=== PATIENT | female | born 1975 | race Caucasian/White ===

== ENCOUNTER 2019-12-02 14:10 | Outpatient (CLI) | payer BC, SELFPAY ==
--- NOTE | ~2019-12-02 | US_ITS ---
EXAMINATION: US OB follow up DATE: 12/02/2019 14:57 INDICATION: Establish dating of during second trimester . TECHNIQUE: Real-time ultrasound of the pelvis was performed. The interpreting radiologist was not pre sent for the study. COMPARISON: None. FINDINGS: There is a single living fetus in vertex presentation. The placenta is anterior and not low-lying wi th caudal margin 9.3 cm from the internal cervical os. heart rate is 142 beats per minute (bpm) . The amniotic fluid index is subjectively normal. The following biometric data were obtained: BPD: 4.6 cm -> 19 weeks 5 days Head circumference: 16.4 cm -> 19 weeks 1 days Abdominal circumference: 14.2 cm -> 19 weeks 4 days Femur length: 2.8 cm -> 18 weeks 4 days These measurements are concordant. Head circumference to abdominal circumference ratio: 1.15 (normal range 1.09-1.26). Estimated weight: 276 g (+/-) 41 g. or 10 oz. (+/-) 1 oz. IMPRESSION: 1. Single living fetus in vertex presentation with heart rate of 142 bpm. 2. Gestational age by ultrasound of 19 weeks 2 day(s) +/- 1 week 2 days with ultrasound estimated cassandra e of delivery (MATHIEU) of 04/25/2020. Estimated weight is 18th percentile by Hadlock criteria when 04/22/2020 is used as the MATHIEU. Please correlate with clinical information or earlier ultrasounds for m ost accurate MATHIEU. Reviewed, dictated and finalized at location A. IMPRESSION: 1. Single living fetus in vertex presentation with heart rate of 142 bpm. 2. Gestational age by ultrasound of 19 weeks 2 day(s) +/- 1 week 2 days with ul trasound estimated date of delivery (MATHIEU) of 04/25/2020. Estimated weight is 18th percentile by Hadlock criteria when 04/22/2020 is used as the MATHIEU. Pleas e correlate with clinical information or earlier ultrasounds for most accurate MATHIEU.
[2019-12-02 16:23] LABS: Basophils Percent Auto 0.1 % (0.2-1.2); Eosinophils Percent Auto 0.2 % (0-4.4); Hematocrit 35.8 % (37.0-47.0); Hemoglobin 12.5 g/dL (12.0-15.0); Immature Granulocyte Absolute 0.04 K/mm3 (0.00-0.031); Immature Granulocyte Percent A 0.4 % (0-0.5); Lymphocytes Absolute Auto 1.24 K/mm3 (0.9-3.2); Lymphocytes Percent Auto 11.2 % (18.3-44.2); Mean Corpuscular HGB Conc 34.9 g/dl (32-36); Mean Corpuscular Hemoglobin 30.4 pg (26-34); Mean Corpuscular Volume 87.1 fl (80-100); Mean Platelet Volume 8.8 fl (7.4-10.4); Monocytes Absolute Auto 0.4 K/mm3 (0.1-0.6); Monocytes Percent Auto 3.3 % (2.6-8.5); Neutrophils Absolute Auto 9.4 K/mm3 (1.3-6.7); Neutrophils Percent Auto 84.8 % (45.5-73.1); Platelet Count Result 294 k/mm3 (150-375); Red Blood Count 4.11 M/mm3 (4.2-5.4); Red Cell Distribution Width 12.8 % (11.5-14.5); White Blood Count 11.1 K/mm3 (4.5-10.0)
[2019-12-02 16:37] LABS: Alanine Aminotransferase 48 U/L (4-35); Albumin Level 4.1 g/dL (3.5-5.1); Alkaline Phosphatase 95 U/L (38-126); Aspartate Amino Transferase 31 U/L (14-36); Bilirubin,Total 0.4 mg/dL (0.2-1.3); Blood Urea Nitrogen 9 mg/dL (7-17); Calcium 9.7 mg/dL (8.4-10.2); Carbon Dioxide 20 mmol/L (22-30); Chloride 104 mmol/L (98-107); Estimated Glomerular Filt Rate > 60; Glucose 91 mg/dL (65-105); Lactate Dehydrogenase 401 U/L (313-618); Potassium 4.1 mmol/L (3.4-5.0); Sodium 130 mmol/L (137-145)
[2019-12-02 17:02] LABS: Hemoglobin A1C 5.2 % (<5.7)
[2019-12-02 17:04] LABS: Vitamin D 25 Hydroxy 22.5 ng/mL
[2019-12-02 17:27] LABS: Hepatitis B Surface Antigen Negative (Negative); Rubella IgG Antibody 32.1 IU/ML
[2019-12-02 17:31] LABS: HIV 1/2 Ab P24 Ag Result Negative (Negative)
[2019-12-03 08:49] LABS: Rapid Plasma Reagin Non-Reactive (NonReactive)
== END 2019-12-02 14:11 | disposition home or self-care (01) ==
PROVIDERS: PCP Nurse Practitioner; Visit Provider Nurse Practitioner
DX: Z34.92 Encounter for supervision of normal pregnancy, unspecified, second trimester (principal); Z3A.19 19 weeks gestation of pregnancy
CPT/HCPCS: 36415; 76816; 80053; 82306; 83036; 83615; 85025; 85461; 86592; 86703; 86762; 87340; G0432

== ENCOUNTER 2019-12-04 15:48 | Outpatient (CLI) | payer BC, SELFPAY ==
[2019-12-04 18:39] LABS: Creatinine Urine 118.2 mg/dL
[2019-12-04 18:50] LABS: Creatinine 24 Hour Urine 0.9 gm/24 (0.8-1.8); Total Volume 24 Hour Urine 800 ml
[2019-12-04 19:14] LABS: Total Protein Urine 24 Hr 136 MG/DAY (28-141); Total Protein Urine Random 17 mg/dL; Total Volume 24 Hour Urine 800 ml
== END 2019-12-04 15:49 | disposition home or self-care (01) ==
PROVIDERS: PCP Nurse Practitioner; Visit Provider Nurse Practitioner
DX: Z36.9 Encounter for antenatal screening, unspecified (principal)
CPT/HCPCS: 81050; 82570; 84156

== ENCOUNTER 2019-12-16 14:57 | Outpatient (CLI) | payer BC, SELFPAY ==
[2019-12-16 15:50] LABS: Alanine Aminotransferase 39 U/L (4-35); Albumin Level 3.7 g/dL (3.5-5.1); Alkaline Phosphatase 84 U/L (38-126); Aspartate Amino Transferase 28 U/L (14-36); Bilirubin,Total 0.4 mg/dL (0.2-1.3); Blood Urea Nitrogen 9 mg/dL (7-17); Calcium 8.9 mg/dL (8.4-10.2); Carbon Dioxide 23 mmol/L (22-30); Chloride 106 mmol/L (98-107); Estimated Glomerular Filt Rate > 60; Glucose 137 mg/dL (65-105); Potassium 3.5 mmol/L (3.4-5.0); Sodium 135 mmol/L (137-145)
== END 2019-12-16 14:58 | disposition home or self-care (01) ==
PROVIDERS: PCP Nurse Practitioner Family; Visit Provider Obstetrics & Gynecology Gynecology
DX: R79.9 Abnormal finding of blood chemistry, unspecified (principal)
CPT/HCPCS: 36415; 80053

== ENCOUNTER 2020-03-05 15:38 | Outpatient (CLI) | payer BC, SELFPAY ==
--- NOTE | 2020-03-05 18:44 | OBADM ---
This patient, Nasreen Osorio, admitted to the OB room for observation. Patient/family oriented to hospital policies and general routines including ID bracelet, bed and alarms, visiting hours, pain management, procedures, bathroom and other care routines, personal items, smoking policy, room service/diet, call light, and visiting hours. Patient/Family are encouraged to report perceived risks to care and to ask questions if they do not understand what they are told or what they should do.
== END 2020-03-05 15:39 | disposition home or self-care (01) ==
PROVIDERS: PCP Nurse Practitioner Family; Visit Provider Obstetrics & Gynecology
DX: Z34.90 Encounter for supervision of normal pregnancy, unspecified, unspecified trimester (principal); Z3A.00 Weeks of gestation of pregnancy not specified
CPT/HCPCS: J3105

== ENCOUNTER 2020-03-10 19:17 | Observation (INO) | payer BC, SELFPAY ==
[2020-03-10 20:54] VITALS: BP 119/67; PULSE 87
[2020-03-10 21:22] LABS: Add Urine Microscopic? YES; Appearance Urine Clear (Clear); Bacteria Urine Trace /hpf; Bilirubin Urine Negative (Negative); Blood Urine Negative (Negative); Color Urine Yellow (Yellow); Glucose Urine UA Negative (Negative); Ketones Urine 1+ mg/dL (Negative); Leukocyte Esterase Ur Negative LEU/UL (NEGATIVE); Mucus Urine Rare /lpf; Nitrate Urine Negative (Negative); Protein Urine Negative (Negative); RBC Urine 0-2 /hpf (0-2); Squamous Epithelial Cell Urine Moderate /hpf (Few); Urobilinogen Urine Negative mg/dL (<2.0); WBC Urine 0-3 /hpf (0-3)
[2020-03-10 21:41] LABS: Fetal Fibronectin Negative
[2020-03-10] MEDS: TERBUTALINE SULFATE 1 MG/ML VIAL 0.25 MG SUB-Q (22:17)
[2020-03-10 22:39] VITALS: BP 139/47; PULSE 93
[2020-03-10 23:08] VITALS: BP 132/53; PULSE 90
[2020-03-10] MEDS: NIFEdipine 10 MG CAPSULE PO (23:54)
[2020-03-11 01:43] VITALS: BMI 35.9
--- NOTE | 2020-03-11 01:43 | OBADM ---
[id number]. This patient, Nasreen Osorio, admitted to the OB room OB Post 116 for observation. Patient/family oriented to hospital policies and general routines including ID bracelet, bed and alarms, visiting hours, pain management, procedures, bathroom and other care routines, personal items, smoking policy, room service/diet, and visiting hours. Patient/Family are encouraged to report perceived risks to care and to ask questions if they do not understand what they are told or what they should do.
--- NOTE | 2020-03-20 11:18 | PM.OBTRLD ---
OB - Triage/Final Diagnosis Evaluation Laboratory results: Laboratory Tests 03/10/20 03/10/20 21:10 21:10 Urine Color Yellow Urine Appearance Clear Urine pH 6.0 Ur Specific [place] 1.010 Urine Protein Negative Urine Glucose (UA) Negative Urine Ketones 1+ H Ur Blood (Man) Negative Urine Nitrate Negative Urine Bilirubin Negative Urine Urobilinogen Negative Ur Leukocyte Esterase Negative Urine RBC 0-2 Urine WBC 0-3 Ur Squamous Epith Cells Moderate H Urine Bacteria Trace Hyaline Casts 1-2 Urine Mucus Rare Fibronectin Negative Final Diagnosis (1) contractions: Code(s): O47.9 - False labor, unspecified Status: Acute
== END 2020-03-11 00:10 | disposition home or self-care (01) ==
PROVIDERS: Admitting Provider Obstetrics & Gynecology; PCP Nurse Practitioner Family; Visit Provider Obstetrics & Gynecology
DX: O47.9 False labor, unspecified (principal); Z3A.00 Weeks of gestation of pregnancy not specified
CPT/HCPCS: 81001; 82731; 96372; A9270; G0378; G0379; J3105

== ENCOUNTER 2020-04-22 14:55 | Observation (INO) | payer BC, SELFPAY ==
[2020-04-22] VITALS (62 sets, daily range): BP systolic 122–183; BP diastolic 61–85; PULSE 43–73; RESP 15–16; TEMP 36.4–36.6; O2SAT 93–100
[2020-04-22 10:41] LABS: Basophils Percent Auto 0.3 % (0.2-1.2); Eosinophils Absolute Auto 0.2 K/mm3 (0-0.3); Eosinophils Percent Auto 2.5 % (0-4.4); Hematocrit 31.3 % (37.0-47.0); Hemoglobin 10.8 g/dL (12.0-15.0); Immature Granulocyte Absolute 0.06 K/mm3 (0.00-0.031); Immature Granulocyte Percent A 0.9 % (0-0.5); Lymphocytes Absolute Auto 1.14 K/mm3 (0.9-3.2); Lymphocytes Percent Auto 17.9 % (18.3-44.2); Mean Corpuscular HGB Conc 34.5 g/dl (32-36); Mean Corpuscular Hemoglobin 30.9 pg (26-34); Mean Corpuscular Volume 89.7 fl (80-100); Mean Platelet Volume 8.6 fl (7.4-10.4); Monocytes Absolute Auto 0.3 K/mm3 (0.1-0.6); Neutrophils Absolute Auto 4.7 K/mm3 (1.3-6.7); Neutrophils Percent Auto 73.4 % (45.5-73.1); Platelet Count Result 269 k/mm3 (150-375); Red Blood Count 3.49 M/mm3 (4.2-5.4); Red Cell Distribution Width 12.1 % (11.5-14.5); White Blood Count 6.4 K/mm3 (4.5-10.0)
[2020-04-22] MEDS: LABETALOL HCL 100 MG TABLET PO ×2 (10:44→11:23)
[2020-04-22] MEDS: MEPERIDINE HCL INJ (*CRX) 50 MG/ML AMPUL IM ×2 (10:47→22:10)
[2020-04-22 10:54] LABS: Alanine Aminotransferase 47 U/L (4-35); Albumin Level 3.4 g/dL (3.5-5.1); Alkaline Phosphatase 130 U/L (38-126); Anion Gap 10 mmol/L (8-16); Aspartate Amino Transferase 31 U/L (14-36); Bilirubin,Total 0.3 mg/dL (0.2-1.3); Blood Urea Nitrogen 20 mg/dL (7-17); Calcium 8.6 mg/dL (8.4-10.2); Carbon Dioxide 23 mmol/L (22-30); Chloride 108 mmol/L (98-107); Estimated Glomerular Filt Rate > 60; Glucose 95 mg/dL (65-105); Potassium 4.1 mmol/L (3.4-5.0); Sodium 141 mmol/L (137-145); Uric Acid 5.1 mg/dL (2.5-7.5)
--- NOTE | 2020-04-22 11:09 | PC.NURSE ---
9295--Phone call to Dr. Restrepo re: Elevated BP, orders to give another dose of labetalol 100mg PO now and reevaluate in 20 minutes.
--- NOTE | 2020-04-22 11:50 | PC.NURSE ---
2411--Page to Dr. Restrepo to report v.s.
--- NOTE | 2020-04-22 12:01 | PC.NURSE ---
1200--Dr. Restrepo on unit, v.s. reviewed, no new orders received.
--- NOTE | 2020-04-22 12:41 | PC.NURSE ---
3182--Phone call to Dr. Restrepo re: kezia and h/a 08/25 bilateral temporal. Orders for procardia and vicoden.
[2020-04-22] MEDS: HYDROcodone/acetaminophen (*CRX) 10-325 MG TABLET 1 TAB PO (13:04)
[2020-04-22] MEDS: NIFEdipine 30 MG TAB.ER.24 PO (13:05)
[2020-04-22] MEDS: FUROSEMIDE INJ 40 MG/4 ML VIAL IV PUSH (15:09)
--- NOTE | 2020-04-22 16:28 | PC.NURSE ---
6464--Phone call to Dr. Restrepo re: kezia, orders for hydralazine IV per protocol.
[2020-04-22] MEDS: hydrALAZINE HCL 20 MG/ML VIAL 5 MG IV PUSH (16:51)
[2020-04-22] MEDS: IBUPROFEN 400 MG TABLET 800 MG PO (18:44)
[2020-04-23] VITALS (122 sets, daily range): BP systolic 139–154; BP diastolic 66–86; PULSE 50–77; TEMP 36.4–37.1; O2SAT 94–100
--- NOTE | 2020-04-23 07:48 | PM.IMHP ---
H&P: HPI History of Present Illness Date/Time: 04/23/20 07:48 Chief complaint: elevated bp Narrative: Nasreen Osorio is a 44 year old female 6 days pp seen at the office. BP's elevated and headache with scotomata. Sent to [facility] yesterday for management. Given Labetalol, procardia, lasix, and hydralazine to control BP. Good diuresis. BP's stable for >12 hours without meds. Patient headache treated with Demerol, ibuprofen, and norco. No further scotamata. [facility] Past Medical History Medical History (Updated 04/23/20 @ 13:57 by Nasreen Restrepo MD) Migraines (normal spontaneous vaginal delivery) x 2 contractions Status post hysteroscopy Family History Family History (Updated 07/27/16 @ 11:28 by DOCTOR UNKNOWN) Father Diabetes mellitus Family history of renal failure Mother Diabetes mellitus Family history of migraine headaches Family history of Parkinson's disease Family history of Alzheimer's disease Family history of malignant neoplasm of cervix Other Family history of lung cancer Family history of malignant neoplasm of brain Social History Social History Smoking status: Never smoker Alcohol intake: current Meds Home Medications and Allergies Home Medications Medication Instructions Recorded Confirmed Type acetaminophen [Tylenol] 650 mg PO Q6H PRN 04/22/20 04/22/20 History docusate sodium [Colace] 100 mg PO DAILY PRN 04/22/20 04/22/20 History ibuprofen 600 mg PO Q6H PRN 04/22/20 04/22/20 History hydrocodone-acetaminophen [[place]] 1 tablet PO Q4H PRN #10 tablet 04/23/20 Rx Allergies Allergy/AdvReac Type Severity Reaction Status Date / Time No Known Allergies Allergy Unverified 07/21/16 10:30 Vital Signs Vital Signs - 24 hr 04/22/20 10:38 04/22/20 10:43 04/22/20 10:44 Temperature Pulse Rate 52 L 54 L 54 L Respiratory Rate Blood Pressure 171/75 H 183/85 H Pulse Oximetry 04/22/20 10:56 04/22/20 11:01 04/22/20 11:16 Temperature Pulse Rate 52 L 55 L 48 L Respiratory Rate Blood Pressure 181/83 H 174/85 H 168/70 H Pulse Oximetry 04/22/20 11:21 04/22/20 11:23 04/22/20 11:31 Temperature Pulse Rate 49 L 57 L 49 L Respiratory Rate Blood Pressure 168/76 H 162/75 H Pulse Oximetry 04/22/20 11:41 04/22/20 11:46 04/22/20 12:01 Temperature Pulse Rate 49 L 52 L 47 L Respiratory Rate Blood Pressure 163/77 H 155/76 H 165/69 H Pulse Oximetry 04/22/20 12:16 04/22/20 12:31 04/22/20 13:01 Temperature Pulse Rate 46 L 45 L 45 L Respiratory Rate Blood Pressure 155/76 H 163/73 H 155/76 H Pulse Oximetry 04/22/20 13:07 04/22/20 13:31 04/22/20 14:01 Temperature 97.8 F Pulse Rate 44 L 44 L Respiratory Rate 16 Blood Pressure 162/73 H 168/79 H Pulse Oximetry 04/22/20 14:31 04/22/20 15:18 04/22/20 15:19 Temperature 97.5 F L Pulse Rate 43 L 45 L Respiratory Rate 15 Blood Pressure 172/73 H 179/78 H Pulse Oximetry 04/22/20 15:31 04/22/20 16:01 04/22/20 16:21 Temperature Pulse Rate 48 L 47 L 51 L Respiratory Rate Blood Pressure 177/81 H 173/74 H 163/68 H Pulse Oximetry 04/22/20 16:31 04/22/20 16:52 04/22/20 17:01 Temperature Pulse Rate 50 L 51 L 58 L Respiratory Rate Blood Pressure 157/71 H 159/72 H 126/76 Pulse Oximetry 04/22/20 17:16 04/22/20 17:31 04/22/20 17:53 Temperature Pulse Rate 57 L 58 L 63 Respiratory Rate Blood Pressure 140/70 138/68 126/70 Pulse Oximetry 04/22/20 18:01 04/22/20 18:41 04/22/20 18:50 Temperature 98 F Pulse Rate 58 L 59 L Respiratory Rate Blood Pressure 135/67 145/69 H Pulse Oximetry 04/22/20 19:01 04/22/20 19:31 04/22/20 20:01 Temperature Pulse Rate 61 65 59 L Respiratory Rate Blood Pressure 135/64 123/62 123/61 Pulse Oximetry 04/22/20 20:31 04/22/20 21:01 04/22/20 22:01 Temperature Pulse Rate 59 L 63 58 L Respiratory Rate Blood Pressure 122/66 1
--- NOTE | 2020-04-23 07:50 | PC.NURSE ---
Dr. Restrepo at bedside to assess and discuss plan of care with pt. Discharge instructions given to pt per Dr. Restrepo. Pt may eat and take medication for headache. May D/C home if headache improves.
[2020-04-23] MEDS: IBUPROFEN 600 MG TABLET PO (07:57)
[2020-04-23] MEDS: HYDROcodone/acetaminophen (*CRX) 5-325 MG TABLET 1 TAB PO (07:58)
== END 2020-04-23 09:25 | disposition home or self-care (01) ==
LOC: ANHOBOP 04-23 09:11 → ANHOBPP 04-23 09:15
PROVIDERS: Admitting Provider Obstetrics & Gynecology Gynecology; Visit Provider Obstetrics & Gynecology Gynecology
DX: O14.95 Unspecified pre-eclampsia, complicating the puerperium (principal)
CPT/HCPCS: 36415; 80053; 84550; 85025; 96372; 96374; 96375; A9270; G0378; G0379; J0360; J1940; J2175

== ENCOUNTER 2020-05-16 15:46 | Inpatient (IN) | payer BC, SELFPAY ==
--- NOTE | ~2020-05-16 | XR_ITS ---
EXAMINATION: XR ERCP DATE: 05/17/2020 11:13 INDICATION: Cholelithiasis. TECHNIQUE: 3 spot fluoroscopic images of the right upper quadrant were obtained during endoscopic ret rograde cholangiopancreatography (ERCP). Fluoroscopy exposure time was 1.6 minutes. COMPARISON: CT abdomen and pelvis 05/16/2020 FINDINGS: The endoscope is in the second portion the duodenum. There is contrast opacification of the biliary tree. There is no visible choledocholithiasis. IMPRESSION: 1. No visible choledocholithiasis. Please refer to the ERCP procedure note for additional details. Reviewed, dictated and finalized at location A. BILITY ENGINEER
--- NOTE | ~2020-05-16 | CT_ITS ---
EXAMINATION: CT abdomen pelvis w con DATE: 05/16/2020 17:04 INDICATION: Epigastric abdominal pain. Jaundice. TECHNIQUE: Computed tomography (CT) of the abdomen and pelvis was performed with 100 mL Omnipaque 350 intravenous contrast. Automated exposure control and iterative reconstruction technique were employe d. The dose-length product was 500.26 mGy-cm. COMPARISON: None. FINDINGS: The visualized portions of the lung bases are clear without pneumonia or pleural effusion. The heart size is normal. No pericardial effusion. There is mild intrahepatic biliary duct dilatation . The common duct is mildly dilated 8 mm. There are gallstones in the gallbladder, which is normal in size. The spleen, pancreas, and adrenal glands are normal. There are cysts in the kidneys measuring up to 4 mm on the left. There are 2 stones in left kidney measuring up to 4 mm. There is a 2.1 cm belle rine fibroid. There are changes of recent section. There are no dilated loops of bowel. The appendix is normal. There are no pathologically enlarged lymph nodes. There is no free intraperitonea l fluid. There is a hemangioma in L4 vertebral body. IMPRESSION: 1. Mild intrahepatic and extrahepatic biliary duct dilatation. 2. Cholelithiasis. Reviewed, dictated and finalized at location A. F DIGITAL MEDIA OFFICER
[2020-05-16 15:48] VITALS: BP 144/84; PULSE 92; RESP 18; TEMP 36.4; O2SAT 98
[2020-05-16 16:03] LABS: Basophils Absolute Auto 0.1 K/mm3 (0.0-0.1); Basophils Percent Auto 0.7 % (0.2-1.2); Eosinophils Absolute Auto 0.2 K/mm3 (0-0.3); Eosinophils Percent Auto 2.9 % (0-4.4); Hematocrit 48.5 % (37.0-47.0); Hemoglobin 16.7 g/dL (12.0-15.0); Immature Granulocyte Absolute 0.02 K/mm3 (0.00-0.031); Immature Granulocyte Percent A 0.2 % (0-0.5); Lymphocytes Absolute Auto 1.72 K/mm3 (0.9-3.2); Lymphocytes Percent Auto 20.7 % (18.3-44.2); Mean Corpuscular HGB Conc 34.4 g/dl (32-36); Mean Corpuscular Hemoglobin 30.3 pg (26-34); Mean Platelet Volume 8.9 fl (7.4-10.4); Monocytes Absolute Auto 0.5 K/mm3 (0.1-0.6); Monocytes Percent Auto 5.5 % (2.6-8.5); Neutrophils Absolute Auto 5.8 K/mm3 (1.3-6.7); Platelet Count Result 317 k/mm3 (150-375); Red Blood Count 5.51 M/mm3 (4.2-5.4); White Blood Count 8.3 K/mm3 (4.5-10.0)
[2020-05-16 16:19] LABS: Albumin Level 4.7 g/dL (3.5-5.1); Alkaline Phosphatase 587 U/L (38-126); Anion Gap 13 mmol/L (8-16); Aspartate Amino Transferase 528 U/L (14-36); Bilirubin,Total 5.3 mg/dL (0.2-1.3); Blood Urea Nitrogen 19 mg/dL (7-17); Calcium 9.8 mg/dL (8.4-10.2); Carbon Dioxide 27 mmol/L (22-30); Chloride 104 mmol/L (98-107); Estimated CRCL calculation 82 ml/min; Estimated Glomerular Filt Rate > 60; Glucose 107 mg/dL (65-105); Lipase 170 U/L (23-300); Potassium 3.8 mmol/L (3.4-5.0); Sodium 144 mmol/L (137-145)
[2020-05-16 16:26] LABS: Alanine Aminotransferase 1053 U/L (4-35)
--- NOTE | 2020-05-16 16:37 | ED.ABDPAIN ---
HPI - Abdominal Pain General Chief Complaint: Abdominal Pain Stated Complaint: epigastric Time Seen by Provider: 05/16/20 16:22 Source: patient Mode of arrival: ambulatory Limitations: no limitations History of Present Illness HPI narrative: Right upper quadrant pain for the last few days. Associated with nausea. Radiating to the right mid back. Patient denies any fever, chills, vomiting Status post section 4 weeks ago, no history of abdominal surgery before. History of hypertension, patient does not smoke or drink or uses drugs. Related Data Home Medications Medication Instructions Recorded Confirmed nifedipine PO 05/16/20 Allergies Allergy/AdvReac Type Severity Reaction Status Date / Time No Known Allergies Allergy Unverified 05/16/20 15:52 Review of Systems Review of Systems: Narrative: CONSTITUTIONAL: Denies fever, chills, or sweats. EYES: Denies visual changes, redness, or discharge. ENT: Denies rhinorrhea, congestion, sore throat, or otalgia. CARDIOVASCULAR: Denies chest pain, palpitations, or edema. RESPIRATORY: Denies cough or dyspnea. GASTROINTESTINAL: Right upper abdominal pain GENITOURINARY: Denies dysuria or hematuria. SKIN: Denies rash or itching. MUSCULOSKELETAL: Denies back pain, joint pain, or myalgia. NEUROLOGIC: Denies headache, numbness, or weakness. PSYCHIATRIC: Denies anxiety or depression. PMFSH Past Medical History Medical History Migraines (normal spontaneous vaginal delivery) x 2 contractions Status post hysteroscopy Family History Family History Father Diabetes mellitus Family history of renal failure Mother Diabetes mellitus Family history of migraine headaches Family history of Parkinson's disease Family history of Alzheimer's disease Family history of malignant neoplasm of cervix Other Family history of lung cancer Family history of malignant neoplasm of brain Social History Social History Smoking status: Never smoker Alcohol intake: current Gender identity (if verbalized by the patient): Female Exam Narrative: Exam Narrative: General appearance: Well-developed, well-nourished Skin: Yellow skin Head: Normocephalic, nontraumatic Eyes: Clear conjunctiva ENT: Oropharynx normal, ears normal, nose normal Neck: Supple, nontender Chest and respiratory: Airway patent, no respiratory distress, no accessory muscle use Heart: Regular rate/rhythm Abdomen: Diffuse tenderness right upper quadrant, positive Puentes sign. Quiet bowel sounds Vascular: Normal peripheral pulses, normal capillary refill. 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 Gallbladder pathology, pancreatic mass are my concern. Labs, CT abdomen and pelvis with IV contrast, IV fluid ordered. Further plan to follow Differential Diagnosis Differential diagnosis:
[2020-05-16 16:47] LABS: Add Urine Microscopic? YES; Amorphous Sediment Urine Few; Appearance Urine Cloudy (Clear); Bacteria Urine Trace /hpf; Bilirubin Urine 2+ (Negative); Blood Urine 3+ (Negative); Color Urine Amber (Yellow); Glucose Urine UA Negative (Negative); Ketones Urine Trace mg/dL (Negative); Leukocyte Esterase Ur Trace LEU/UL (Negative); Mucus Urine Rare /lpf; Nitrate Urine Negative (Negative); Protein Urine 2+ mg/dL (Negative); RBC Urine >75 /hpf (0-2); Specific Grav Ur 1.021 (1.001-1.035); Squamous Epithelial Cell Urine Many /hpf (Few); WBC Urine 31-50 /hpf
[2020-05-16] MEDS: SODIUM CHLORIDE 0.9% IV 1,000 ML 999 ML IV CONT (16:52)
[2020-05-16] MEDS: metroNIDAZOLE 500 MG/ISO 100ML 500 MG/100 ML BAG 100 MG IVPB (18:38)
--- NOTE | 2020-05-16 19:05 | WPDGICN ---
Assessment and Plan Additional Plan GI Consultation Dr. Espinoza 16 May 2020 This is an 44 year old patient with a history of CSx one month ago, HTN and Migraines who now presents for evaluation of chest/epigastric pain. Patient is seen at the request of the ER/Hospitalist service to evaluate for same. Patient is seen in ER room 2. The patient?s primary care provider is Dr. Aurelio Restrepo. Patient states she has had a few days of epigastric/chest/RUQ pain and nausea without emesis. It radiates to the mid scapular region. It got worse after thanksgiving dinner. No association with BM. She has chronic, intermittent heartburn. Patient denies previous abdominal pain, nausea or vomiting, trouble swallowing, bloating, loss of appetite or weight, early satiety, diarrhea or constipation, rectal bleeding or melena. Patient denies fever, jaundice, scleral icterus, dark urine, light stool, itching, hot or cold intolerance, chest pain, shortness of breath at rest, hematuria, dysuria, new cough or visual changes, easy bruising, tingling of the skin, bone pain or tremors. No history of endocarditis, rheumatic fever, dental prophylaxis, heart valve surgery, bleeding disorder or joint replacement. NKDA. Medications: nifedipine. Social history: nonsmoker, nondrinker. Family history: negative for GI malignancy or GB disease. Physical exam: No lower extremity edema, jaundice, spider angioma, palmar erythema. Skull is normocephalic atraumatic. Sclera are non-icteric. Oropharynx is clear. Neck is supple without thyromegaly. Lungs are clear. Heart is rate and rhythm regular. S1 and S2 normal. Normal active bowel sounds. Non-tender, non-rigid, non-distended without hepatosplenomegaly or masses. No guarding. Rectal is deferred. Neuro is conscious and alert ?3. Labs: Hct 49. WBC 8. MCV 88. TBili 5.3, A/P 587, AST 528, ALT 1053. Lipase 170. Imaging: CT A/P with IV contrast: intra/extrahepatic biliary dilation and GS. Assessment and plan: Pain, nausea, abnormal LFT's and abnormal imaging-biliary with GS and concern for CBD stone - Symptomatic GB disease with likely choledocholithiasis - ABx - ERCP in am (by Dr. Rowell) - Surgical consult for CCx (I have discussed the case with Dr. Aurelio Leos) - Follow labs The procedure of ERCP, its indications, alternatives of barium studies/surgery and risks including perforation, bleeding, infection, reaction to medication as well as the possible need for blood or surgery and up to 10% risk of pancreatitis were discussed with the patient prior to the procedure. Patient voices understanding, agrees to proceed and provides informed consent. Thank you very much for allowing me to share in the care of your patient. Further recommendations per Dr. Rowell. Ronen Espinoza M.D. (c) [phone] Cc: Dr. Rowell; Dr. Restrepo; Dr. Aurelio Leos GI Consult Note Consult date/time: 05/16/20 19:05 HPI: Nasreen Osorio is a 44 year old female [facility] Past Medical History Medical History Migraines (normal spontaneous vaginal delivery) x 2 contractions Status post hysteroscopy Family History Family History Father Diabetes mellitus Family history of renal failure Mother Diabetes mellitus Family history of migraine headaches Family history of Parkinson's disease Family history of Alzheimer's disease Family history of malignant neoplasm of cervix Other Family history of lung cancer Family history of malignant neoplasm of brain Social History Social History Smoking status: Never smoker Alcohol intake: current Gender identity (if verbalized by the patient): Female Meds Home Medications and Allergies Home Medications Medication Instructions Recorded Confirmed Type nifedipine PO 05/16/20 History Allergies Allergy
[2020-05-16 19:16] VITALS: BP 138/70; PULSE 68; RESP 18; O2SAT 99
[2020-05-16 19:34] VITALS: BP 134/78; PULSE 78; RESP 18; O2SAT 99
[2020-05-16 19:35] VITALS: BP 134/70; PULSE 69; RESP 16; TEMP 37.1; O2SAT 99; BMI 30.9
--- NOTE | 2020-05-16 19:45 | ADMGEN ---
This patient, Nasreen Osorio, was admitted to [facility] Surg Room 310-01. Patient/family oriented to hospital policies and general routines including ID bracelet, bed and alarms, visiting hours, pain management, procedures, bathroom and other care routines, personal items, smoking policy, room service/diet, and visiting hours. Information on how to activate the Rapid Response Team has been discussed. Patient/Family are encouraged to report perceived risks to care and to ask questions if they do not understand what they are told or what they should do.
--- NOTE | 2020-05-16 20:00 | PM.IMHP ---
H&P: HPI History of Present Illness Date/Time: 05/16/20 20:00 Chief complaint: Abdominal pain. Narrative: Nasreen Osorio is a pleasant 44-year-old female with history of migraine headaches and more recent development of hypertension (status post section on 04/16/2020) who presented to the emergency department earlier today from home for evaluation of abdominal pain. Last after eating her Thanksgiving meal she developed pretty severe pain in the epigastrium and right upper quadrant radiating through to the back and into the right scapula. She has a difficult time describing the pain but it was quite severe and was associated with nausea. The pain improved the following day but has continued intermittently since that time and she believes it is related to food. She has not had anything to eat since last night with some improvement in her pain however today she noticed mild jaundice and felt it would be best to come in for evaluation. With further questioning she does mention having severe heartburn throughout her but her symptoms were not as severe at that time. She denies fever, chills, sweats, chest pain, shortness of breath, vomiting, and diarrhea. No known previous history of gallbladder disease. Review of Systems Review of Systems: Narrative: Twelve systems were reviewed with pertinent positives and negatives as per HPI. She has a mild frontal headache but this has been intermittent since her blood pressure began to increase in the phase, for which she was started on nifedipine. No fever, chills, or sweats. No cold or flu symptoms. She denies exposure to those positive for COVID-19. She is bottle feeding her baby. No rash or pruritus. Except as documented, all other systems were reviewed and are negative. [facility] Past Medical History Medical History (Updated 05/16/20 @ 22:55 by Nicole Clark PA-C) Migraines hypertension Surgical History Surgical History (Updated 05/16/20 @ 22:49 by Nicole Clark PA-C) History of section (~04/16/20) History of hysteroscopy History of lymph node excision Left inguinal lymph node excision as a child, benign finding. History of wisdom tooth extraction Family History Family History Father Diabetes mellitus Family history of renal failure Mother Diabetes mellitus Family history of migraine headaches Family history of Parkinson's disease Family history of Alzheimer's disease Family history of malignant neoplasm of cervix Other Family history of lung cancer Family history of malignant neoplasm of brain Social History Social History (Updated 05/16/20 @ 22:50 by Nicole Clark PA-C) Social History: The patient lives in [place] with her significant other and children. 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 She denies alcohol, tobacco, and illicit substance use. She designates Artem Larkin, her significant other, as her surrogate decision maker and she wishes to be a full code. Substance use: never Sexual Orientation (if Verbalized by the Patient): Straight or Heterosexual Spiritual care concerns: No Meds Home Medications and Allergies Home Medications Medication Instructions Recorded Confirmed Type nifedipine PO 05/16/20 History Allergies Allergy/AdvReac Type Severity Reaction Status Date / Time No Known Allergies Allergy Verified 05/16/20 21:58 Vital Signs Vital Signs - 24 hr 05/16/20 15:48 05/16/20 19:16 05/16/20 19:34 Temperature 97.5 F L Pulse Rate 92 68 78 Respiratory Rate 18 18 18 Blood Pressure 144/84 H 138/70 134/78 Pulse Oximetry 98 99 99 Exam Narrative: Exam Narrative: General: Well-developed female sitting up in bed no distress. Weight: 73 kg. BMI: 29.4. HEENT: PERRL, EOMI. Mild scleral icterus. Oral mucosa is dry. Neck: Supple. Respiratory: Lungs are jose daniel
[2020-05-16] MEDS: SODIUM CHLORIDE 0.9% IV 1,000 ML 125 ML IV CONT (20:07)
[2020-05-16] MEDS: ACETAMINOPHEN 325 MG TABLET PO (21:44)
[2020-05-17] VITALS (14 sets, daily range): BP systolic 129–148; BP diastolic 59–90; PULSE 54–101; RESP 15–20; TEMP 36.3–37.6; O2SAT 97–100
[2020-05-17] MEDS: SODIUM CHLORIDE 0.9% IV 1,000 ML 75 ML IV CONT (06:03)
--- NOTE | 2020-05-17 09:15 | PC.NURSE ---
To GI Lab per wheelchair, IV 22 RFA.
[2020-05-17 09:35] LABS: Basophils Percent Auto 0.4 % (0.2-1.2); Eosinophils Absolute Auto 0.5 K/mm3 (0-0.3); Eosinophils Percent Auto 6.4 % (0-4.4); Hematocrit 41.6 % (37.0-47.0); Hemoglobin 13.9 g/dL (12.0-15.0); Immature Granulocyte Absolute 0.02 K/mm3 (0.00-0.031); Immature Granulocyte Percent A 0.3 % (0-0.5); Lymphocytes Absolute Auto 1.44 K/mm3 (0.9-3.2); Lymphocytes Percent Auto 19.5 % (18.3-44.2); Mean Corpuscular HGB Conc 33.4 g/dl (32-36); Mean Corpuscular Hemoglobin 29.6 pg (26-34); Mean Corpuscular Volume 88.7 fl (80-100); Mean Platelet Volume 8.9 fl (7.4-10.4); Monocytes Absolute Auto 0.4 K/mm3 (0.1-0.6); Monocytes Percent Auto 4.9 % (2.6-8.5); Neutrophils Absolute Auto 5.1 K/mm3 (1.3-6.7); Neutrophils Percent Auto 68.5 % (45.5-73.1); Platelet Count Result 262 k/mm3 (150-375); Red Blood Count 4.69 M/mm3 (4.2-5.4); White Blood Count 7.4 K/mm3 (4.5-10.0)
--- NOTE | 2020-05-17 09:38 | PM.CNGS ---
Assessment and Plan Assessment and plan (1) Cholelithiasis: Qualifiers: Biliary obstruction: with biliary obstruction Cholecystitis presence: without cholecystitis Cholelithiasis location: gallbladder and bile duct Qualified Code(s): K80.71 - Calculus of gallbladder and bile duct without cholecystitis with obstruction Code(s): K80.20 - Calculus of gallbladder without cholecystitis without obstruction Status: Acute Assessment and Plan: The patient has evidence of cholelithiasis and intra/extrahepatic biliary duct dilatation along with abdominal pain, nausea, and transaminitis. This is likely secondary to choledocholithiasis. Gastroenterology has been consulted. Plan is for ERCP today. Lipase and WBC both normal on initial labs, and patient is afebrile. She is feeling much better with only minimal pain in the RUQ. The patient was started on broad-spectrum IV antibiotics. I discussed the patient's case and plan of care with Dr. Leos. We would recommend proceeding with a laparoscopic cholecystectomy. Description of the procedure, risks, benefits, indications, and expected outcomes and recovery were discussed with the patient in detail. All questions were answered. She is eager to be discharged home as soon as possible. We will await the ERCP results and continue to trend her labs. The patient is currently NPO for ERCP today, but it is okay from a surgical standpoint to begin advancing the patient's diet after the procedure to a low fat diet. We will reassess the patient again tomorrow and decide on timing of surgery. It is possible that she could potentially discharge home if stable tomorrow and come back for the surgery later this week or next week if needed. Will continue to follow along. Thank you for allowing us to see the patient in consultation. (2) Abnormal computed tomography of abdomen and pelvis: Code(s): R93.5 - Abnormal findings on diagnostic imaging of other abdominal regions, including retroperitoneum Status: Acute Assessment and Plan: See plan above. CT scan of abd/pelvis showing evidence of cholelithiasis and intrahepatic and extrahepatic biliary duct dilatation. (3) Elevated liver enzymes: Code(s): R74.8 - Abnormal levels of other serum enzymes Status: Acute Assessment and Plan: Likely due to choledocholithiasis. AM labs this morning are pending. GI consulted and planning ERCP for today. (4) delivery delivered: Code(s): O82 - Encounter for delivery without indication Status: Acute Assessment and Plan: on 04/16/20. (5) hypertension: Code(s): O16.5 - Unspecified maternal hypertension, complicating the puerperium Status: Acute Assessment and Plan: Stable. Currently on home medication. History of Present Illness Consult details Consult date: 05/17/20 Reason for consult: gallstones (Cholelithiasis with elevated LFTs and suspected choledocholithiasis) Requesting physician: Jasmine Bridges MD Narrative: This is a 44-year-old female who has a history of hypertension following a section on 04/16/2020. She reports having a sudden onset of severe epigastric and right upper quadrant abdominal pain radiating to her mid chest and upper back that started a few hours after eating Thanksgiving dinner 4 days ago. She had associated nausea, but no vomiting. She states the pain was ongoing through the night and improved some the next day. She avoided eating food until Sunday. She states that her pain seem aggravated by eating food over the weekend. Therefore, she avoided eating again yesterday. Last night, she felt that her skin and eyes appeared yellow-tinged, therefore she presented to the emergency department for further evaluation. CT scan of the abdomen and pelvis showed cholelithiasis with mild intrahepatic and extrahepatic biliary duct dilatation. Labs showed a white blood nakul
[2020-05-17 09:42] LABS: INR 0.9; Prothrombin Time 12.4 Seconds (11.1-14.7)
[2020-05-17 09:43] LABS: Partial Thromboplastin Time 24.7 SECONDS (22.3-36.8)
[2020-05-17 09:50] LABS: Alanine Aminotransferase 714 U/L (4-35); Albumin Level 3.8 g/dL (3.5-5.1); Alkaline Phosphatase 453 U/L (38-126); Anion Gap 10 mmol/L (8-16); Aspartate Amino Transferase 242 U/L (14-36); Bilirubin,Total 2.6 mg/dL (0.2-1.3); Blood Urea Nitrogen 12 mg/dL (7-17); Calcium 9.1 mg/dL (8.4-10.2); Carbon Dioxide 25 mmol/L (22-30); Chloride 106 mmol/L (98-107); Estimated CRCL calculation 84 ml/min; Estimated Glomerular Filt Rate > 60; Glucose 87 mg/dL (65-105); Potassium 3.6 mmol/L (3.4-5.0); Sodium 141 mmol/L (137-145)
[2020-05-17] MEDS: LACTATED RINGERS 1,000 ML 150 ML IV CONT (09:58)
--- NOTE | 2020-05-17 10:15 | WPDANESEPPF ---
Anes - Initial Pre Proc Eval Procedure: Operation Date: 05/17/20 12:00 Proposed Procedures p Endoscopic Retro Cholangiopancreatogram - Juan Carlos Rowell MD Date/Time: 05/17/20 10:15 Surgeon: Tootie Mckoy NP Pre Op Diagnosis: Abdominal pain. Patient Data Age: 44 Gender: F Height: 5 ft 2 in Weight: 76.8 kg Last Vital Signs Temp 98.9 F 05/17/20 10:03 Pulse 68 05/17/20 10:03 Resp 16 05/17/20 10:03 BP 138/82 05/17/20 10:03 Pulse Ox 99 05/17/20 10:03 Allergies Allergy/AdvReac Type Severity Reaction Status Date / Time No Known Allergies Allergy Verified 05/16/20 21:58 Home Medications Medication Instructions Recorded Confirmed Type nifedipine 30 mg PO BID 05/16/20 05/16/20 History Laboratory Tests 05/16/20 05/16/20 05/16/20 15:55 15:55 16:02 WBC 8.3 K/mm3 K/mm3 (4.5-10.0) RBC 5.51 M/mm3 H M/mm3 (4.2-5.4) Hgb 16.7 g/dL H D g/dL (12.0-15.0) Hct 48.5 % H % (37.0-47.0) MCV 88.0 fl fl (80-100) MCH 30.3 pg pg (26-34) MCHC 34.4 g/dl g/dl (32-36) RDW 12.0 % % (11.5-14.5) Plt Count 317 k/mm3 k/mm3 (150-375) MPV 8.9 fl fl (7.4-10.4) Immature Gran % (Auto) 0.2 % % (0-0.5) Neut % (Auto) 70.0 % % (45.5-73.1) Lymph % (Auto) 20.7 % % (18.3-44.2) [place] % (Auto) 5.5 % % (2.6-8.5) Eos % (Auto) 2.9 % % (0-4.4) Baso % (Auto) 0.7 % % (0.2-1.2) Lymph # (Auto) 1.72 K/mm3 K/mm3 (0.9-3.2) [place] # (Auto) 0.5 K/mm3 K/mm3 (0.1-0.6) Eos # (Auto) 0.2 K/mm3 K/mm3 (0-0.3) Baso # (Auto) 0.1 K/mm3 K/mm3 (0.0-0.1) Abs Immat Gran (auto) 0.02 K/mm3 K/mm3 (0.00-0.031) Absolute Neuts (auto) 5.8 K/mm3 K/mm3 (1.3-6.7) Absolute Nucleated RBC 0.0 K/mm3 K/mm3 (0.0-0.012) Nucleated RBC % 0.0 % % (0.0-0.2) PT INR APTT Sodium 144 mmol/L mmol/L (137-145) Potassium 3.8 mmol/L mmol/L (3.4-5.0) Chloride 104 mmol/L mmol/L (98-107) Carbon Dioxide 27 mmol/L mmol/L (22-30) Anion Gap 13 mmol/L mmol/L (8-16) BUN 19 mg/dL H mg/dL (7-17) Creatinine 0.70 mg/dL mg/dL (0.7-1.0) Estim Creat Clear Calc 82 ml/min ml/min Estimated GFR > 60 (59 - ) Glucose 107 mg/dL H mg/dL (65-105) Calcium 9.8 mg/dL mg/dL (8.4-10.2) Total Bilirubin 5.3 mg/dL H mg/dL (0.2-1.3) AST 528 U/L H U/L (14-36) ALT 1053 U/L H U/L (4-35) Alkaline Phosphatase 587 U/L H U/L (38-126) Total Protein 9.0 g/dL H g/dL (6.3-8.2) Albumin 4.7 g/dL g/dL (3.5-5.1) Lipase 170 U/L U/L (23-300) Urine Color [place] (Yellow) Urine Appearance Cloudy H (Clear) Urine pH 5.0 (5.0-9.0) Ur Specific [place] 1.021 (1.001-1.035) Urine Protein 2+ mg/dL H mg/dL (Negative) Urine Glucose (UA) Negative mg/dL mg/dL (Negative) Urine Ketones Trace mg/dL mg/dL (Negative) Ur Blood (Man) 3+ H (Negative) Urine Nitrate Negative (Negative) Urine Bilirubin 2+ H (Negative) Urine Urobilinogen 4.0 mg/dL H mg/dL (<2.0) Leukocyte Esterase Rfl Trace EVELIN/UL H EVELIN/UL (Negative) Urine RBC >75 /hpf H /hpf (0-2) Urine WBC 31-50 /hpf H /hpf Ur Squamous Epith Cells Many /hpf H /hpf (Few) Amorphous Sediment Few H (None) Urine Bacteria Trace /hpf /hpf Urine Mucus Rare /lpf /lpf 05/17/20 05/17/20 05/17/20 09:10 09:10 09:10 WBC 7.4 K/mm3 K/mm3 (4.5-10.0) RBC 4.69 M/mm3 M/mm3 (4.2-5.4) Hgb 13.9 g/dL g/dL (12.0-15.0) Hct 41.6 % % (37.0-
--- NOTE | 2020-05-17 12:23 | PM.PNGS ---
Progress Note: A&P Assessment and Plan (1) Choledocholithiasis with chronic cholecystitis: Code(s): K80.44 - Calculus of bile duct with chronic cholecystitis without obstruction Status: Acute Assessment and Plan: Patient feeling much better. May have passed a common bile duct stone. I discussed with her that the source of the gallstones is the gallbladder and she will be needing to have cholecystectomy. She is going to be having ERCP today. She is anxious to go home as soon as possible. Her gallbladder surgery could safely be done as an outpatient which she would prefer. Probably will be discharging the patient once she has recovered from her ERCP and then proceed with outpatient laparoscopic cholecystectomy. (2) Benign obstructive jaundice: Code(s): K83.1 - Obstruction of bile duct Status: Acute Assessment and Plan: Pend today's labs. Does not look jaundiced this morning. Subjective Subjective Date/Time Seen: 05/17/20 07:23 Patient reports: feels better and pain is less Interval history: Patient is a 44-year-old woman who had a baby about a month ago. She ate Thanksgiving dinner on 1126 and that evening had epigastric and right upper quadrant abdominal pain. It radiated to her back. That got better but then yesterday she had chicken tacos with cheese in the afternoon and developed recurrent pain. She came to the emergency room. She had noticed that she was jaundiced at home. Her bilirubin was elevated and she had right upper quadrant tenderness. Imaging suggested gallstones and common bile duct stone. This morning she felt quite a bit better. Her pain was gone. Labs were pending when I saw her. She is seen in consultation regarding gallstone pancreatitis. Review of Systems Review of Systems: All systems reviewed & are unremarkable except as noted in HPI and below Constitutional: Constitutional: Denies headache(s) Cardiovascular: Cardiovascular: Denies chest pain and Denies dyspnea Respiratory: Respiratory: Denies cough and Denies dyspnea Gastrointestinal: Gastrointestinal: Reports as per HPI Neurologic: Denies confusion and Denies headache(s) Exam Const: General: comfortable and no acute distress; No confusion Orientation/consciousness: patient oriented x3 and No confusion GI: Inspection: non-distended GI Palp: Yes Soft to palpation, No Tenderness to palpation present (GI), No Guarding due to palpation present (GI) and No Rebound tenderness present Auscultation: normal bowel sounds Neuro: General: patient oriented x3, no focal motor deficits and No confusion Extrem: General: no calf tenderness and no edema Psych: Affect: normal affect Insight: Good insight present (Psych) Judgement: Good judgement present (Psych) Objective Data Vital Signs Vital Signs: Vital Signs - 24 hr 05/16/20 15:48 05/16/20 19:16 05/16/20 19:34 Temperature 36.4 C L Pulse Rate 92 68 78 Respiratory Rate 18 18 18 Blood Pressure 144/84 H 138/70 134/78 Pulse Oximetry 98 99 99 05/16/20 19:35 05/17/20 05:00 05/17/20 10:03 Temperature 37.1 C 36.9 C 37.2 C Pulse Rate 69 71 68 Respiratory Rate 16 20 16 Blood Pressure 134/70 133/72 138/82 Pulse Oximetry 99 99 99 05/17/20 11:20 05/17/20 11:30 05/17/20 11:40 Temperature 37.6 C H Pulse Rate 101 H 72 63 Respiratory Rate 18 16 15 Blood Pressure 143/90 H 136/74 146/71 H Pulse Oximetry 100 100 100 05/17/20 11:50 05/17/20 12:00 05/17/20 12:10 Temperature Pulse Rate 65 67 62 Respiratory Rate 16 20 16 Blood Pressure 143/70 H 146/73 H 148/76 H Pulse Oximetry 100 99 100 05/17/20 12:20 Temperature Pulse Rate 64 Respiratory Rate 18 Blood Pressure 145/72 H Pulse Oximetry 100 Intake/Output Intake/Output: Intake & Output 05/14/20 05/15/20 05/16/20 05/17/20 23:59 23:59 23:59 23:59 Intake Total 1150 1570 Output Total 800 Balance 1150 770 Meds/Results Medications: Active Medications Generic Name Dos
--- NOTE | 2020-05-17 12:30 | PC.NURSE ---
Returned from GI Lab. Report received from
--- NOTE | 2020-05-17 15:47 | PM.IMPN ---
Progress Note: A&P Assessment and Plan (1) Cholelithiasis: Qualifiers: Biliary obstruction: with biliary obstruction Cholecystitis presence: without cholecystitis Cholelithiasis location: gallbladder and bile duct Qualified Code(s): K80.71 - Calculus of gallbladder and bile duct without cholecystitis with obstruction Code(s): K80.20 - Calculus of gallbladder without cholecystitis without obstruction Status: Acute Assessment and Plan: evidence of cholelithiasis and intra/extrahepatic biliary duct dilatation along with RUQ abdominal pain, nausea, and transaminitis. likely secondary to choledocholithiasis. Gastroenterology consulted. ERCP today. Lipase and WBC both normal, afebrile. on broad-spectrum IV antibiotics. earlier today patient was NPO for ERCP she is now waking up from her procedure and attempting advance diet as tolerated to a low fat diet. (2) Abnormal computed tomography of abdomen and pelvis: Code(s): R93.5 - Abnormal findings on diagnostic imaging of other abdominal regions, including retroperitoneum Status: Acute Assessment and Plan: See plan above. CT scan of abd/pelvis showing evidence of cholelithiasis and intrahepatic and extrahepatic biliary duct dilatation. (3) Elevated liver enzymes: Code(s): R74.8 - Abnormal levels of other serum enzymes Status: Acute Assessment and Plan: Likely due to choledocholithiasis. AM labs this morning are pending. GI consulted and planning ERCP for today. (4) delivery delivered: Code(s): O82 - Encounter for delivery without indication Status: Acute Assessment and Plan: on 04/16/20. healing well and no complications noted at this time. (5) hypertension: Code(s): O16.5 - Unspecified maternal hypertension, complicating the puerperium Status: Acute Assessment and Plan: Stable. Currently on home medication. monitoring with VS. Subjective Date/time seen: 05/17/20 15:47 ERCP results pending. Patient just returned from ERCP procedure. She is complaining of a sore throat, feeling as if her fluids and foods are getting stuck in her throat. Encouraged her to use ice chips for comfort and advance her diet as tolerated. She is very tired today, had minimal amount of sleep between the new baby and her discomfort. Her incision is healing well, no redness, no pain to palpation, and no swelling or drainage noted. No open areas. Continue IV zosyn for positive UA. Urine cultures remain pending. She has not been able to eat or drink anything yet. Review of Systems Review of Systems: All systems reviewed & are unremarkable except as noted in HPI and below Constitutional: Constitutional: Reports as per HPI, Denies chills, Denies excessive sweating, Denies fatigue, Denies fever(s), Denies headache(s) and Denies weakness Eyes: Eyes: Denies change in vision and Denies loss of vision ENT: Denies dizziness and Denies headache(s) Cardiovascular: Cardiovascular: Denies chest pain, Denies syncope, Denies leg edema, Denies lightheadedness, Denies radiating jaw, neck or arm pain and Denies dyspnea Respiratory: Respiratory: Denies cough, Denies dyspnea and Denies wheezing Gastrointestinal: Gastrointestinal: Reports as per HPI, Reports abdominal pain (Epigastric/RUQ r/t mid chest and upper back), Reports belching, Denies bloating, Denies change in stool character, Denies constipation, Denies diarrhea, Reports nausea and Denies vomiting Genitourinary: Genitourinary: Reports no additional female genitourinary complaints, Denies hematuria and Denies dysuria Musculoskeletal: Musculoskeletal: Denies deformity, Denies joint swelling, Denies radiating pain into limb and Denies tingling Integumentary/Breasts: Skin/Breast: Denies pruritus, Reports wounds (Pfannenstiel incision s/p ) and Denies jaundice Neurologic: Denies confusion, Denies
[2020-05-17] MEDS: NIFEdipine 30 MG TAB.ER.24 PO (17:34)
[2020-05-17] MEDS: DOCUSATE SODIUM 100 MG CAPSULE PO (20:28)
[2020-05-18] VITALS: BP 134/74; PULSE 58; RESP 20; TEMP 36.9; O2SAT 97
[2020-05-18] MEDS: SODIUM CHLORIDE 0.9% IV 1,000 ML 75 ML IV CONT ×2 (00:21→18:25)
[2020-05-18] MEDS: ACETAMINOPHEN 325 MG TABLET PO ×2 (00:22→15:32)
[2020-05-18 04:00] VITALS: BP 113/42; PULSE 57; RESP 20; TEMP 37; O2SAT 97
--- NOTE | 2020-05-18 07:56 | P.PNAN_ITS ---
Anes - Prog Note Post-Op Date/Time: 05/18/20 07:56 Cardiovascular status: normal Respiratory status: normal Airway patency: baseline Mental status: baseline Post-Op hydration status: normal Vital Signs: Last Vital Signs Temp 37.0 C 05/18/20 04:00 Pulse 57 L 05/18/20 04:00 Resp 20 05/18/20 04:00 BP 113/42 L 05/18/20 04:00 Pulse Ox 97 05/18/20 04:00 Pain Score (VAS): 0 I/O: Intake & Output 05/17/20 05/17/20 05/18/20 15:59 23:59 07:59 Intake Total 390 2150 400 Output Total 1000 1500 Balance 390 1150 -1100 Laboratory Tests 05/17/20 09:10 05/17/20 09:10 05/17/20 05/17/20 05/17/20 09:10 09:10 09:10 WBC 7.4 RBC 4.69 Hgb 13.9 Hct 41.6 MCV 88.7 MCH 29.6 MCHC 33.4 RDW 12.0 Plt Count 262 MPV 8.9 Immature Gran % (Auto) 0.3 Neut % (Auto) 68.5 Lymph % (Auto) 19.5 [place] % (Auto) 4.9 Eos % (Auto) 6.4 H Baso % (Auto) 0.4 Lymph # (Auto) 1.44 [place] # (Auto) 0.4 Eos # (Auto) 0.5 H Baso # (Auto) 0.0 Abs Immat Gran (auto) 0.02 Absolute Neuts (auto) 5.1 Absolute Nucleated RBC 0.0 Nucleated RBC % 0.0 PT 12.4 INR 0.9 APTT 24.7 Sodium 141 Potassium 3.6 Chloride 106 Carbon Dioxide 25 Anion Gap 10 BUN 12 D Creatinine 0.70 Estim Creat Clear Calc 84 Estimated GFR > 60 Glucose 87 Calcium 9.1 Total Bilirubin 2.6 H AST 242 H ALT 714 H Alkaline Phosphatase 453 H Total Protein 7.0 Albumin 3.8 Post-procedural complaints: none Patient Feedback: Patient satisfied with anesthetic care.
[2020-05-18 08:25] LABS: Basophils Percent Auto 0.5 % (0.2-1.2); Eosinophils Absolute Auto 0.5 K/mm3 (0-0.3); Eosinophils Percent Auto 8.4 % (0-4.4); Hematocrit 38.4 % (37.0-47.0); Hemoglobin 12.8 g/dL (12.0-15.0); Immature Granulocyte Absolute 0.03 K/mm3 (0.00-0.031); Immature Granulocyte Percent A 0.5 % (0-0.5); Lymphocytes Absolute Auto 1.89 K/mm3 (0.9-3.2); Lymphocytes Percent Auto 30.6 % (18.3-44.2); Mean Corpuscular HGB Conc 33.3 g/dl (32-36); Mean Corpuscular Hemoglobin 29.8 pg (26-34); Mean Corpuscular Volume 89.3 fl (80-100); Mean Platelet Volume 8.9 fl (7.4-10.4); Monocytes Absolute Auto 0.3 K/mm3 (0.1-0.6); Monocytes Percent Auto 5.2 % (2.6-8.5); Neutrophils Absolute Auto 3.4 K/mm3 (1.3-6.7); Neutrophils Percent Auto 54.8 % (45.5-73.1); Platelet Count Result 238 k/mm3 (150-375); Red Cell Distribution Width 12.1 % (11.5-14.5); White Blood Count 6.2 K/mm3 (4.5-10.0)
[2020-05-18 08:38] LABS: Alanine Aminotransferase 435 U/L (4-35); Albumin Level 3.2 g/dL (3.5-5.1); Alkaline Phosphatase 313 U/L (38-126); Anion Gap 6 mmol/L (8-16); Aspartate Amino Transferase 110 U/L (14-36); Bilirubin,Total 1.2 mg/dL (0.2-1.3); Blood Urea Nitrogen 8 mg/dL (7-17); Calcium 8.4 mg/dL (8.4-10.2); Carbon Dioxide 28 mmol/L (22-30); Chloride 107 mmol/L (98-107); Estimated CRCL calculation 74 ml/min; Estimated Glomerular Filt Rate > 60; Glucose 94 mg/dL (65-105); Magnesium 2.1 mg/dL (1.6-2.3); Potassium 3.6 mmol/L (3.4-5.0); Sodium 141 mmol/L (137-145)
--- NOTE | 2020-05-18 09:06 | WPDGIPROGNO ---
Progress Note: A&P Assessment and Plan (1) Cholelithiasis: Qualifiers: Biliary obstruction: with biliary obstruction Cholecystitis presence: without cholecystitis Cholelithiasis location: gallbladder and bile duct Qualified Code(s): K80.71 - Calculus of gallbladder and bile duct without cholecystitis with obstruction Code(s): K80.20 - Calculus of gallbladder without cholecystitis without obstruction Status: Acute Assessment and Plan: Patient is status post recent cholecystectomy for gallstones. Clinically improving (2) Choledocholithiasis with chronic cholecystitis: Code(s): K80.44 - Calculus of bile duct with chronic cholecystitis without obstruction Status: Acute Assessment and Plan: Unable to confirm common bile duct gallstones by ERCP yesterday. LFTs continue to improve after ERCP and sphincterotomy. Suspect she may have passed a common bile duct gallstone. Plan to advance to low-fat diet discharge today if others agree. Subjective Date/time seen: 05/18/20 09:06 Patient alert and comfortable this morning. Complains of a sore throat after intubation for ERCP. Tolerated liquid diet without difficulty. No abdominal pain. Exam Narrative: Exam Narrative: Patient alert. HEENT exam unremarkable. Lungs are clear. Heart without murmur. Abdomen bowel sounds present soft no localized tenderness evident. LFTs continue to improve. Objective Data Vital Signs Vital Signs: Vital Signs - 24 hr 05/17/20 10:03 05/17/20 11:20 05/17/20 11:30 Temperature 98.9 F 99.7 F H Pulse Rate 68 101 H 72 Respiratory Rate 16 18 16 Blood Pressure 138/82 143/90 H 136/74 Pulse Oximetry 99 100 100 05/17/20 11:40 05/17/20 11:50 05/17/20 12:00 Temperature Pulse Rate 63 65 67 Respiratory Rate 15 16 20 Blood Pressure 146/71 H 143/70 H 146/73 H Pulse Oximetry 100 100 99 05/17/20 12:10 05/17/20 12:20 05/17/20 12:45 Temperature 97.6 F Pulse Rate 62 64 60 Respiratory Rate 16 18 16 Blood Pressure 148/76 H 145/72 H 135/68 Pulse Oximetry 100 100 97 05/17/20 13:00 05/17/20 13:30 05/17/20 14:30 Temperature 97.3 F L 97.3 F L 97.8 F Pulse Rate 64 54 L 63 Respiratory Rate 16 16 16 Blood Pressure 141/68 H 129/73 140/59 L Pulse Oximetry 100 99 99 05/17/20 20:00 05/18/20 00:00 05/18/20 04:00 Temperature 98.4 F 98.5 F 98.6 F Pulse Rate 60 58 L 57 L Respiratory Rate 20 20 20 Blood Pressure 143/72 H 134/74 113/42 L Pulse Oximetry 99 97 97 Intake/Output Intake/Output: Intake & Output 05/15/20 05/16/20 05/17/20 05/18/20 23:59 23:59 23:59 23:59 Intake Total 1150 4060 400 Output Total 1800 1500 Balance 1150 2260 -1100 Meds/Results Medications: Active Medications Generic Name Dose Route Start Last Admin Trade Name Freq PRN Reason Stop Dose Admin Acetaminophen 325 mg 05/16/20 21:31 05/18/20 00:22 Acetaminophen 325 Mg Tablet PO 325 mg Q6H PRN Administration Mild Pain (1-3) or Fever Docusate Sodium 100 mg 05/17/20 21:00 05/17/20 20:28 Docusate Sodium 100 Mg Capsule PO 100 mg Q12HR DEBORAH Administration Hydromorphone HCl 0.5 mg 05/16/20 21:31 Hydromorphone Hcl Inj (*Crx) 1 Mg/Ml Syr IV PUSH Q4H PRN Pain Rated 7-10 Sodium Chloride 1,000 mls @ 75 mls/hr 05/16/20 18:35 05/18/20 00:21 Normal Saline Iv IV CONT 75 mls/hr .[id number] DEBORAH Administration Piperacillin/Tazobactam/Dextrose 3.375 gm in 50 mls @ 100 mls/hr 05/16/20 23:10 05/18/20 05:56 Zosyn 3.375 Gm/D5w 50ml Pm IVPB 100 mls/hr Q6HR DEBORAH Administration Nifedipine 30 mg 05/17/20 09:00 05/17/20 17:34 Nifedipine 30 Mg Tab.Er.24 PO 30 mg BID DEBORAH Administration Senna/Docusate Sodium 1 tab 05/17/20 15:49 Senna/Docusate Sodium Tablet PO HS PRN constipation Radiology Results: ITS Impressions Abdomen/Pelvis CT 05/16/20 17:06 IMPRESSION: 1. Mild intrahepatic and extrahepatic biliary duct dilatation. 2. Cholelithiasi
[2020-05-18] MEDS: SENNA/DOCUSATE SODIUM TABLET 1 TAB PO (09:40)
[2020-05-18] MEDS: DOCUSATE SODIUM 100 MG CAPSULE PO ×2 (09:40→20:56)
[2020-05-18] MEDS: NIFEdipine 30 MG TAB.ER.24 PO ×2 (09:41→18:24)
--- NOTE | 2020-05-18 10:44 | PM.PNGS ---
Progress Note: A&P Assessment and Plan (1) Choledocholithiasis with chronic cholecystitis: Code(s): K80.44 - Calculus of bile duct with chronic cholecystitis without obstruction Status: Acute Assessment and Plan: after discussion, patient prefers to go ahead with laparoscopic cholecystectomy at this admission. She is scheduled for at 9:00 a.m. tomorrow morning to proceed. I discussed the procedure with her thoroughly. The risks the benefits the usual recovery have been discussed. All questions were answered. She understands and wishes to proceed. (2) Benign obstructive jaundice: Code(s): K83.1 - Obstruction of bile duct Status: Resolved Assessment and Plan: I agree with , patient most likely passed common bile duct stone. ERCP results noted. Plan as above. Subjective Subjective Date/Time Seen: 05/18/20 10:44 Patient reports: feels better, pain is less ( no abdominal pain, has sore throat), tolerating liquids well and afebrile Review of Systems Review of Systems: All systems reviewed & are unremarkable except as noted in HPI and below Constitutional: Constitutional: Denies headache(s) Cardiovascular: Cardiovascular: Denies chest pain and Denies dyspnea Respiratory: Respiratory: Denies cough and Denies dyspnea Gastrointestinal: Gastrointestinal: Reports as per HPI, Denies abdominal pain, Denies nausea and Denies vomiting Neurologic: Denies confusion and Denies headache(s) Exam Const: General: comfortable and no acute distress; No confusion Orientation/consciousness: patient oriented x3 and No confusion GI: Inspection: normal to inspection and non-distended GI Palp: Yes Soft to palpation, No Tenderness to palpation present (GI), No Guarding due to palpation present (GI) and No Rebound tenderness present Auscultation: normal bowel sounds Neuro: General: patient oriented x3, no focal motor deficits and No confusion Extrem: General: no calf tenderness and no edema Psych: Affect: normal affect Insight: Good insight present (Psych) Judgement: Good judgement present (Psych) Objective Data Vital Signs Vital Signs: Vital Signs - 24 hr 05/17/20 11:20 05/17/20 11:30 05/17/20 11:40 Temperature 37.6 C H Pulse Rate 101 H 72 63 Respiratory Rate 18 16 15 Blood Pressure 143/90 H 136/74 146/71 H Pulse Oximetry 100 100 100 05/17/20 11:50 05/17/20 12:00 05/17/20 12:10 Temperature Pulse Rate 65 67 62 Respiratory Rate 16 20 16 Blood Pressure 143/70 H 146/73 H 148/76 H Pulse Oximetry 100 99 100 05/17/20 12:20 05/17/20 12:45 05/17/20 13:00 Temperature 36.4 C 36.3 C L Pulse Rate 64 60 64 Respiratory Rate 18 16 16 Blood Pressure 145/72 H 135/68 141/68 H Pulse Oximetry 100 97 100 05/17/20 13:30 05/17/20 14:30 05/17/20 20:00 Temperature 36.3 C L 36.6 C 36.9 C Pulse Rate 54 L 63 60 Respiratory Rate 16 16 20 Blood Pressure 129/73 140/59 L 143/72 H Pulse Oximetry 99 99 99 05/18/20 00:00 05/18/20 04:00 Temperature 36.9 C 37.0 C Pulse Rate 58 L 57 L Respiratory Rate 20 20 Blood Pressure 134/74 113/42 L Pulse Oximetry 97 97 Intake/Output Intake/Output: Intake & Output 05/15/20 05/16/20 05/17/20 05/18/20 23:59 23:59 23:59 23:59 Intake Total 1150 4060 400 Output Total 1800 1500 Balance 1150 2260 -1100 Meds/Results Medications: Active Medications Generic Name Dose Route Start Last Admin Trade Name Freq PRN Reason Stop Dose Admin Acetaminophen 325 mg 05/16/20 21:31 05/18/20 00:22 Acetaminophen 325 Mg Tablet PO 325 mg Q6H PRN Administration Mild Pain (1-3) or Fever Docusate Sodium 100 mg 05/17/20 21:00 05/18/20 09:40 Docusate Sodium 100 Mg Capsule PO 100 mg Q12HR DEBORAH Administration Hydromorphone HCl 0.5 mg 05/16/20 21:31 Hydromorphone Hcl Inj (*Crx) 1 Mg/Ml Syr IV PUSH Q4H PRN Pain Rated 7-10 Sodium Chloride 1,000 mls @ 75 mls/hr 05/16/20 18:35 05/18/20 00:21 Normal Saline I
--- NOTE | 2020-05-18 12:06 | PM.IMPN ---
Progress Note: A&P Assessment and Plan (1) Cholelithiasis: Qualifiers: Biliary obstruction: with biliary obstruction Cholecystitis presence: without cholecystitis Cholelithiasis location: gallbladder and bile duct Qualified Code(s): K80.71 - Calculus of gallbladder and bile duct without cholecystitis with obstruction Code(s): K80.20 - Calculus of gallbladder without cholecystitis without obstruction Status: Acute Assessment and Plan: Evidence of cholelithiasis and intra/extrahepatic biliary duct dilatation on CT imaging along with RUQ abdominal pain, nausea, and transaminitis. No evidence of stone in CBD on ERCP 05/17; possibly passed a stone. LFTs and Bili are improving today. Clinically improving as well. GI and General Surgery both following. Plans are to proceed with cholecystectomy tomorrow. Advance diet per GI rec NPO at midnight Discussed with General Surgery and will d/c Zosyn today Monitor overnight Pain control as needed (2) Abnormal computed tomography of abdomen and pelvis: Code(s): R93.5 - Abnormal findings on diagnostic imaging of other abdominal regions, including retroperitoneum Status: Acute Assessment and Plan: See plan above. CT scan of abd/pelvis showing evidence of cholelithiasis and intrahepatic and extrahepatic biliary duct dilatation. (3) Elevated liver enzymes: Code(s): R74.8 - Abnormal levels of other serum enzymes Status: Acute Assessment and Plan: Likely due to above. LFTs and bili are improving today. Possibly passed stone? Monitor CMP tomorrow (4) hypertension: Code(s): O16.5 - Unspecified maternal hypertension, complicating the puerperium Status: Acute Assessment and Plan: BP a bit soft at 110s this morning Continue home nifedipine monitoring with VS. Subjective Date/time seen: 05/18/20 12:06 Interval history: Patient is a 44 yo F with history of migraine headaches and more recent development of hypertension (status post section on 04/16/2020) who is seen in follow up for cholelithiasis and elevated LFTs and bili. Patient states she feels well today. Improved pain in her abdomen and back. No N/v today. Willing to try low fat diet this afternoon. She states she is planning to proceed with lap lew tomorrow. She reports dark/tea colored urine, but notes that she still is having bleeding and denies any dysuria. No other complaints at the moment. Denies f/c/s, headaches, dizziness, lightheadedness, cp/palpitations, sob/cough, current n/v, calf pain/swelling. Review of Systems Review of Systems: All systems reviewed & are unremarkable except as noted in HPI and below Exam Narrative: Exam Narrative: General: Patient sitting upright in bed in no acute distress. HEENT: Normocephalic, EOMI, oral mucosa moist. Cardiovascular: Rate and rhythm are regular. No notable murmur, rub, or gallop. Respiratory: Lungs clear to auscultation all craft. Non-labored breathing. Abdomen: Soft, non-tender, non-distended, bowel sounds hypoactive Extremities: Peripheral pulses intact. No edema. Neuro: No focal neurological deficits. Speech is clear. Objective Data Vital Signs Vital Signs: Last Vital Signs Temp 98.6 F 05/18/20 04:00 Pulse 57 L 05/18/20 04:00 Resp 20 05/18/20 04:00 BP 113/42 L 05/18/20 04:00 Pulse Ox 97 05/18/20 04:00 Intake/Output Intake/Output: Intake & Output 05/15/20 05/16/20 05/17/20 05/18/20 23:59 23:59 23:59 23:59 Intake Total 1150 4060 640 Output Total 1800 1500 Balance 1150 2260 -860 Meds/Results Medications: Active Medications Generic Name Dose Route Start Last Admin Trade Name Freq PRN Reason Stop Dose Admin Acetaminophen 325 mg 05/16/20 21:31
[2020-05-18 14:00] VITALS: BP 142/74; PULSE 69; RESP 16; TEMP 36.8; O2SAT 100
[2020-05-18 22:00] VITALS: BP 131/70; PULSE 63; RESP 16; TEMP 36.4; O2SAT 100
[2020-05-19] VITALS (10 sets, daily range): BP systolic 106–138; BP diastolic 52–78; PULSE 54–75; RESP 13–19; TEMP 36.1–36.4; O2SAT 97–100
[2020-05-19] MEDS: CHLORHEXIDINE GLUCONATE 4% SOL 120 ML BTL 1 APPLIC TOPICAL (06:14)
[2020-05-19 06:47] LABS: Hematocrit 37.9 % (37.0-47.0); Mean Corpuscular HGB Conc 34.3 g/dl (32-36); Mean Corpuscular Hemoglobin 29.5 pg (26-34); Mean Corpuscular Volume 86.1 fl (80-100); Mean Platelet Volume 9.1 fl (7.4-10.4); Platelet Count Result 256 k/mm3 (150-375); Red Cell Distribution Width 11.8 % (11.5-14.5); White Blood Count 6.5 K/mm3 (4.5-10.0)
[2020-05-19 06:58] LABS: Albumin Level 3.5 g/dL (3.5-5.1); Anion Gap 6 mmol/L (8-16); Blood Urea Nitrogen 9 mg/dL (7-17); Calcium 8.7 mg/dL (8.4-10.2); Carbon Dioxide 28 mmol/L (22-30); Chloride 107 mmol/L (98-107); Estimated CRCL calculation 97 ml/min; Estimated Glomerular Filt Rate > 60; Glucose 100 mg/dL (65-105); Phosphorus 3.7 mg/dL (2.5-4.5); Potassium 3.4 mmol/L (3.4-5.0); Sodium 141 mmol/L (137-145)
[2020-05-19 07:03] LABS: Alanine Aminotransferase 359 U/L (4-35); Albumin Level 3.5 g/dL (3.5-5.1); Alkaline Phosphatase 295 U/L (38-126); Amylase 57 U/L (30-110); Aspartate Amino Transferase 86 U/L (14-36); Lipase 69 U/L (23-300)
[2020-05-19] MEDS: LACTATED RINGERS 1,000 ML 30 ML IV CONT (08:00)
--- NOTE | 2020-05-19 08:24 | WPDHPUPDATE1 ---
History and Physical Update Update Date/Time: 05/19/20 08:24 History and Physical has been reviewed, including an updated exam of the patient. There are NO changes in the patient's condition. Risks, benefits, and alternatives have been discussed and questions answered. Patient agrees to proceed with procedure.
--- NOTE | 2020-05-19 08:36 | WPDANESEFPP ---
Anes - Eval Final PreProcedure Day of Procedure 05/19/20 08:36 Patient weight: overweight Heart: regular rate and rhythm Lungs: clear to auscultation Airway: Mallampati scale class II Neurological: alert and oriented Last oral intake: >/= 8 hours ASA classification: II Emergent: no Anesthetic plan: proceed Anesthesia type and monitoring: general ETT and standard monitoring Informed Consent: The patient's anesthetic plan and its attendant risks and benefits were discussed with the patient/family/POA. Questions were solicited and answers provided to the satisfaction of the patient/family/POA.
--- NOTE | 2020-05-19 08:47 | WPDGIPROGNO ---
Progress Note: A&P Additional Plan Patient improving today. Notes only minimal right side pain. Some throat pain after intubation for ERCP. LFTs continue to improve. Physical exam this morning reveals abdomen to be soft bowel sounds are present nontender. Labs reveal continued decline in LFTs. Impression 1. Elevated LFTs. Cholelithiasis. It appears patient likely passed some common bile duct gallstones. Surgical therapy to anticipated today. Subjective Date/time seen: 05/19/20 08:48 Objective Data Vital Signs Vital Signs: Vital Signs - 24 hr 05/18/20 14:00 05/18/20 22:00 05/19/20 05:43 Temperature 98.3 F 97.6 F 97.3 F L Pulse Rate 69 63 63 Respiratory Rate 16 16 16 Blood Pressure 142/74 H 131/70 138/78 Pulse Oximetry 100 100 99 Intake/Output Intake/Output: Intake & Output 05/16/20 05/17/20 05/18/20 05/19/20 23:59 23:59 23:59 23:59 Intake Total 1150 4060 2390 1250 Output Total 1800 2800 850 Balance 1150 2260 -410 400 Meds/Results Medications: Active Medications Generic Name Dose Route Start Last Admin Trade Name Freq PRN Reason Stop Dose Admin Acetaminophen 325 mg 05/16/20 21:31 05/18/20 15:32 Acetaminophen 325 Mg Tablet PO 325 mg Q6H PRN Administration Mild Pain (1-3) or Fever Docusate Sodium 100 mg 05/17/20 21:00 05/18/20 20:56 Docusate Sodium 100 Mg Capsule PO 100 mg Q12HR DEBORAH Administration Hydromorphone HCl 0.5 mg 05/16/20 21:31 Hydromorphone Hcl Inj (*Crx) 1 Mg/Ml Syr IV PUSH Q4H PRN Pain Rated 7-10 Sodium Chloride 1,000 mls @ 75 mls/hr 05/16/20 18:35 05/19/20 06:51 Normal Saline Iv IV CONT 75 mls/hr .[id number] DEBORAH Infusion Lactated Ringer's 1,000 mls @ 30 mls/hr 05/19/20 07:00 05/19/20 08:00 Lr - Lactated Ringers Iv IV CONT 30 mls/hr .Q24H DEBORAH Administration Potassium Chloride 100 mls @ 50 mls/hr 05/19/20 07:17 Potassium Chloride 20 Meq/Sw 100 Ml IVPB 05/19/20 09:16 ONCE ONE Menthol/Methyl Salicylate 1 applic 05/18/20 16:32 Menthol 10% / Methyl Salicylate 15% 57 Gm Tube TOPICAL BID PRN Muscle/Joint Pain Nifedipine 30 mg 05/17/20 09:00 05/18/20 18:24 Nifedipine 30 Mg Tab.Er.24 PO 30 mg BID DEBORAH Administration Senna/Docusate Sodium 1 tab 05/17/20 15:49 05/18/20 09:40 Senna/Docusate Sodium Tablet PO 1 tab HS PRN Administration constipation Radiology Results: ITS Impressions Abdomen/Pelvis CT 05/16/20 17:06 IMPRESSION: 1. Mild intrahepatic and extrahepatic biliary duct dilatation. 2. Cholelithiasis. Endo Retro Cholangiopancreatogram 05/17/20 12:25 IMPRESSION: 1. No visible choledocholithiasis. Please refer to the ERCP procedure note for additional details. Labs Labs: Laboratory Results - last 24 hr 05/18/20 05/19/20 05/19/20 10:58 05:59 05:59 WBC 6.5 RBC 4.40 Hgb 13.0 Hct 37.9 MCV 86.1 MCH 29.5 MCHC 34.3 RDW 11.8 Plt Count 256 MPV 9.1 Sodium Potassium Chloride Carbon Dioxide Anion Gap BUN Creatinine Estim Creat Clear Calc Estimated GFR Glucose Calcium Phosphorus Magnesium Total Bilirubin 1.0 Direct Bilirubin 0.0 AST 86 H ALT 359 H Alkaline Phosphatase 295 H Total Protein 7.0 Albumin 3.5 Amylase 57 Lipase 69 Blood Type A Positive Antibody Screen Negative 05/19/20 05:59 WBC RBC Hgb Hct MCV MCH MCHC RDW Plt Count MPV Sodium 141 Potassium 3.4 Chloride 107 Carbon Dioxide 28 Anion Gap 6 L BUN 9 Creatinine 0.60 L Estim Creat Clear Calc 97 Estimated GFR > 60 Glucose 100 Calcium 8.7 Phosphorus 3.7 Magnesium 2.0 Total Bilirubin Direct Bilirubin AST ALT Alkaline Phosphatase Total Protein Albumin 3.5 Amylase Lipase Blood Type Antibody Screen
--- NOTE | 2020-05-19 08:55 | PM.PROC ---
Procedure Note - Detailed Date of procedure: 05/19/20 Pre-op diagnosis: Choledocholithiasis, chronic cholecystitis Choledocholithiasis, chronic cholecystitis Post-op diagnosis: same Procedure performed: Laparoscopic cholecystectomy Description of procedure: The patient was taken to surgery and induced into general anesthesia. The abdomen was prepped and draped. Trocars were placed in the usual fashion using 0.5% Marcaine with epinephrine and applied Medical optical trocars. A 5 millimeter camera was used. The gallbladder was decompressed with a laparoscopic aspirator. The cholecystotomy was closed with a Vicryl endo-loop. The gallbladder was retracted anterosuperiorly. Adhesions to the gallbladder were taken down so that the cholecystohepatic triangle was exposed. Traction was placed on the infundibulum. The cystic duct and cystic artery were dissected out very clearly. The gallbladder was dissected off the liver at its lower 3rd. Critical view was achieved. We securely clipped and divided the cystic duct and cystic artery. The gallbladder was then further retracted so that the peritoneal attachments to the liver could be divided. Once the gallbladder was freed entirely, it was placed in an Endo-Catch bag and retrieved through the 10 11 epigastric trocar site. The epigastric trocar was then replaced. We reviewed the right upper quadrant. It was irrigated and suctioned. All looked good with no evidence of bleeding or bile leakage. We evacuated CO2 and removed the trocar sleeves. Skin wounds were closed with subcuticular 4 O Monocryl skin suture. The wounds were dressed with Exofin surgical adhesive. Patient was awakened and taken to recovery in good condition. Sponge and needle counts were correct x2. Anesthesia: GETA and local (0.5% Marcaine with epinephrine) Surgeon: Tee Leos MD Parcel Contractor: Olivia MALCOLM Estimated blood loss (mL): 5 Drains: No Packing: No Pathology: yes (Gallbladder) Complications: None Condition: stable Disposition: PACU Findings: Chronic inflammation, gallstones noted. No biliary ductal dilatation, no liver abnormalities.
[2020-05-19] MEDS: ceFAZolin 2 GM/D5W 50 ML 2 GM/50 ML BAG IVPB (09:10)
[2020-05-19] MEDS: fentaNYL CITRATE INJ (*CRX) 100 MCG/2 ML VIAL 25 MCG IV PUSH ×2 (10:16→10:31)
--- NOTE | 2020-05-19 12:12 | PM.DS ---
DS: Admitting Diagnosis Admitting Diagnosis Admitting Diagnosis: Choledocholithiasis, chronic cholecystitis DS: Discharge Diagnosis Discharge Diagnosis (1) Cholelithiasis: Qualifiers: Biliary obstruction: with biliary obstruction Cholecystitis presence: without cholecystitis Cholelithiasis location: gallbladder and bile duct Qualified Code(s): K80.71 - Calculus of gallbladder and bile duct without cholecystitis with obstruction Code(s): K80.20 - Calculus of gallbladder without cholecystitis without obstruction Status: Acute Assessment and Plan: Evidence of cholelithiasis and intra/extrahepatic biliary duct dilatation on CT imaging along with RUQ abdominal pain, nausea, and transaminitis. No evidence of stone in CBD on ERCP 05/17; possibly passed a stone. LFTs and Bili are improving today. Patient is s/p lap cholecystectomy today per Dr. Leos. Findings of chronic inflammation and gallstones. Clinically improving. GI and General Surgery both following. Plans are for discharge today. Advance diet per Surgery Rec Anticipate discharge today if okay from surgical standpoint Pain management post op per General Surgery F/u with Surgery and PCP (2) Abnormal computed tomography of abdomen and pelvis: Code(s): R93.5 - Abnormal findings on diagnostic imaging of other abdominal regions, including retroperitoneum Status: Acute Assessment and Plan: See plan above. CT scan of abd/pelvis showing evidence of cholelithiasis and intrahepatic and extrahepatic biliary duct dilatation. (3) Elevated liver enzymes: Code(s): R74.8 - Abnormal levels of other serum enzymes Status: Acute Assessment and Plan: Likely due to above. LFTs and bili are improving today. Possibly passed stone? F/u with General surgery (4) hypertension: Code(s): O16.5 - Unspecified maternal hypertension, complicating the puerperium Status: Acute Assessment and Plan: BP a bit soft at 120 SBP most recently post op Continue home nifedipine DS: Summary Hospital Course Reason for hospitalization: Abdominal pain; cholithiasis; cholecystectomy Hospital Course: Date of arrival: 05/16/20 Date of discharge: 05/19/20 Patient is a 44-year-old female with history of migraine headaches and more recent development of hypertension (status post section on 04/16/2020) who presented to the emergency department on 05/16 from home for evaluation of abdominal pain. While in the ED, she was found to have cholelithiasis and hepatic ductal dilatation on CT abd/pelvis, markedly elevated liver enzymes, and bilirubin of 5.3. Given above findings choledocholithiasis was suspected and patient placed on Zosyn. Patient admitted under this setting. Dr. Espinoza (GI), and Dr. Leos (General Surgery) consulted from the ED. Please see H&P for further details. Patient was admitted to the hospitalist service for further management/treatment. Patient was placed on NPO diet and ERCP was recommended per GI; this was performed by Dr. Rowell on 05/17 with balloon clearance of common bile duct without evidence of stones. Diet was then advanced thereafter, which she began to tolerate well. Pain had significantly improved after initial presentation. General Surgery discussed proceeding with cholecystectomy during this hospitalization versus outpatient elective surgery given her cholelithiasis; patient elected to proceed with surgery this hospital stay. She underwent laparoscopic cholecystectomy per Dr. Leos on 05/19 without immediate complications; chronic cholecystitis with cholelithiasis and cholesterolosis found on pathology. Shortly after, diet was advanced per surgery and was okay for discharge on same day of surgery per General Surgery. She was to follow up wi
[2020-05-19] MEDS: HYDROmorphone HCL INJ (*CRX) 1 MG/ML SYR 0.5 MG IV PUSH (14:57)
[2020-05-19] MEDS: DOCUSATE SODIUM 100 MG CAPSULE PO (14:58)
[2020-05-19] MEDS: NIFEdipine 30 MG TAB.ER.24 PO (14:58)
[2020-05-19] MEDS: ONDANSETRON INJ 4 MG/2 ML VIAL IV PUSH (15:04)
== END 2020-05-19 20:10 | disposition home or self-care (01) | DRG 769 ==
LOC: ANHED 18:46 → ANH3MEDSUR 19:00
PROVIDERS: Emergency Medicine; Internal Medicine Gastroenterology; Physician Assistant; Surgery; Admitting Provider Student in an Organized Health Care Education/Training Program; Emergency Provider Emergency Medicine; Visit Provider Physician Assistant
PROC: 0FC98ZZ Extirpation of Matter from Common Bile Duct, Via Natural or Artificial Opening Endoscopic (ICD-10-PCS; CPT 43260; principal; 2020-05-17 12:00)
PROC: 0FT44ZZ Resection of Gallbladder, Percutaneous Endoscopic Approach (ICD-10-PCS; CPT 47562; principal; 2020-05-19 09:00)
DX: O99.63 Diseases of the digestive system complicating the puerperium (principal); K80.10 Calculus of gallbladder with chronic cholecystitis without obstruction; K82.8 Other specified diseases of gallbladder; O16.5 Unspecified maternal hypertension, complicating the puerperium; O99.355 Diseases of the nervous system complicating the puerperium; G43.909 Migraine, unspecified, not intractable, without status migrainosus; O99.893 Other specified diseases and conditions complicating puerperium; R93.5 Abnormal findings on diagnostic imaging of other abdominal regions, including retroperitoneum; R74.8 Abnormal levels of other serum enzymes; R82.71 Bacteriuria; Z79.899 Other long term (current) drug therapy
CPT/HCPCS: 36415; 74177; 74329; 80053; 80069; 80076; 81001; 81025; 82150; 83690; 83735; 85025; 85027; 85610; 85730; 86850; 86900; 86901; 87077; 87086; 87088; 87186; 88304; 96361; 96365; 99285; A9270; C1713; J0330; J0690; J0696; J1100; J1170; J1200; J2250; J2405; J2543; J2704; J2710; J3010; J7030; J7120; Q9966; Q9967

== ENCOUNTER 2020-06-15 19:22 | Observation (INO) | payer BC, SELFPAY ==
--- NOTE | ~2020-06-15 | CT_ITS ---
EXAMINATION: CT abdomen pelvis wo con DATE: 06/15/2020 20:13 INDICATION: Flank pain TECHNIQUE: Computed tomography (CT) of the abdomen and pelvis was performed without intravenous contr ast. The dose-length product (DLP) was 05/16/2020 mGy-cm. Automated exposure control and iterative re construction technique were employed. COMPARISON: 05/16/2020 FINDINGS: The lung bases are clear. The heart size is normal. There has been interval cholecystectomy . The liver, spleen, pancreas, and adrenal glands are normal there is a 4 mm stone at the left ureter ovesicular junction which causes moderate left hydroureteronephrosis. A 5 mm stone is present in the left kidney. The right kidney is unremarkable. No pathologically enlarged abdominal or pelvic lymph n odes are identified. There is no free intraperitoneal gas or evidence of bowel obstruction. There is mild lumbar spondylosis. IMPRESSION: 1. 4 mm stone at the left ureterovesicular junction causing moderate left hydroureteronephrosis. 2. Left nephrolithiasis. 3. Interval cholecystectomy. Reviewed, dictated and finalized at location A. CARE ASSOCIATE IMPRESSION: 1. 4 mm stone at the left ureterovesicular junction causing moderate left hydro ureteronephrosis. 2. Left nephrolithiasis. 3. Interval cholecystectomy.
--- NOTE | ~2020-06-15 | XR_ITS ---
EXAMINATION: XR retrograde pyelogram LT INDICATION: Left ureterovesicular junction stone TECHNIQUE: Five intraoperative fluoroscopic images are submitted for review. Total fluoroscopic time is 16.5 seconds. COMPARISON: CT, 06/15/2020 FINDINGS: There is moderate left hydroureteronephrosis. Cholecystectomy clips are noted in the right upper quadrant. IMPRESSION: 1. Moderate left hydroureteronephrosis. Please refer to procedure note for full details. Reviewed, dictated and finalized at location A. CHANGER
--- NOTE | ~2020-06-15 | XR_ITS ---
EXAMINATION: XR abdomen/kub 1V EXAM DATE: 06/16/2020 07:56 INDICATION: Assess stone position, left-sided. TECHNIQUE: Frontal projection(s) of the abdomen for interpretation. Correlation is made to CT from . FINDINGS: There is a pelvic calcification overlying region of left UVJ, indicated, probably the 4 mm stone identified on yesterday's CT. Possible identification of left nephrolithiasis. Both these find ings have been indicated. Nonobstructive bowel gas pattern. Cholecystectomy clips. IMPRESSION: Probable identification left UPJ stone and left nephrolithiasis. Reviewed, dictated and finalized at location B. NE PROJECT MANAGER
[2020-06-15 19:24] VITALS: BP 153/82; PULSE 93; RESP 16; TEMP 36.6; O2SAT 100
[2020-06-15 19:56] LABS: Basophils Percent Auto 0.2 % (0.2-1.2); Eosinophils Absolute Auto 0.1 K/mm3 (0-0.3); Eosinophils Percent Auto 0.7 % (0-4.4); Hematocrit 39.8 % (37.0-47.0); Hemoglobin 13.7 g/dL (12.0-15.0); Immature Granulocyte Absolute 0.03 K/mm3 (0.00-0.031); Immature Granulocyte Percent A 0.3 % (0-0.5); Lymphocytes Absolute Auto 1.66 K/mm3 (0.9-3.2); Lymphocytes Percent Auto 16.4 % (18.3-44.2); Mean Corpuscular HGB Conc 34.4 g/dl (32-36); Mean Corpuscular Volume 87.3 fl (80-100); Monocytes Absolute Auto 0.4 K/mm3 (0.1-0.6); Neutrophils Percent Auto 78.4 % (45.5-73.1); Platelet Count Result 293 k/mm3 (150-375); Red Blood Count 4.56 M/mm3 (4.2-5.4); Red Cell Distribution Width 13.1 % (11.5-14.5); White Blood Count 10.2 K/mm3 (4.5-10.0)
[2020-06-15] MEDS: HYDROmorphone HCL INJ (*CRX) 1 MG/ML SYR 0.5 MG IV PUSH (19:59)
[2020-06-15] MEDS: ONDANSETRON INJ 4 MG/2 ML VIAL IV PUSH (19:59)
[2020-06-15] MEDS: SODIUM CHLORIDE 0.9% IV 1,000 ML 999 ML IV CONT (19:59)
[2020-06-15 20:03] LABS: Add Urine Microscopic? YES; Appearance Urine Clear (Clear); Bacteria Urine Trace /hpf; Bilirubin Urine Negative (Negative); Blood Urine 3+ (Negative); Color Urine Yellow (Yellow); Glucose Urine UA Negative (Negative); Ketones Urine Negative (Negative); Leukocyte Esterase Ur 1+ LEU/UL (Negative); Mucus Urine Few /lpf; Nitrate Urine Negative (Negative); Protein Urine 1+ mg/dL (Negative); RBC Urine >75 /hpf (0-2); Specific Grav Ur 1.015 (1.001-1.035); Squamous Epithelial Cell Urine Many /hpf (Few); Urobilinogen Urine Negative mg/dL (<2.0)
[2020-06-15 20:10] LABS: Alanine Aminotransferase 181 U/L (4-35); Albumin Level 4.4 g/dL (3.5-5.1); Alkaline Phosphatase 159 U/L (38-126); Anion Gap 9 mmol/L (8-16); Aspartate Amino Transferase 107 U/L (14-36); Bilirubin,Total 0.6 mg/dL (0.2-1.3); Blood Urea Nitrogen 18 mg/dL (7-17); Calcium 9.4 mg/dL (8.4-10.2); Carbon Dioxide 27 mmol/L (22-30); Chloride 103 mmol/L (98-107); Estimated CRCL calculation 73 ml/min; Estimated Glomerular Filt Rate > 60; Glucose 131 mg/dL (65-105); Lipase 109 U/L (23-300); Potassium 3.8 mmol/L (3.4-5.0); Sodium 139 mmol/L (137-145)
[2020-06-15] MEDS: KETOROLAC 30 MG/ML VIAL (*BKC) IV PUSH (20:35)
--- NOTE | 2020-06-15 21:04 | ED.GENADULT ---
HPI - General Adult General Chief complaint: Abdominal Pain Stated complaint: L flank pain Time Seen by Provider: 06/15/20 20:34 Source: patient History of Present Illness HPI narrative: Patient is a 44 y/o female complaining of left flank pain for last 3 weeks. She states that her pain is worse today and she rates her pain as 10/10. Her pain radiates to left lower abdomen and left groin. She has some nausea, but no vomiting. She has no fever, chills or dysuria. Related Data Home Medications Medication Instructions Recorded Confirmed nifedipine 30 mg PO BID 05/16/20 06/03/20 Allergies Allergy/AdvReac Type Severity Reaction Status Date / Time No Known Allergies Allergy Verified 06/15/20 23:10 Review of Systems Constitutional: Constitutional: Denies chills, Denies fever(s), Denies headache(s) and Denies weakness Eyes: Eyes: Denies blurry vision ENT: Denies headache(s) and Denies neck pain Cardiovascular: Cardiovascular: Denies chest pain and Denies dyspnea Respiratory: Respiratory: Denies cough and Denies dyspnea Gastrointestinal: Gastrointestinal: Denies abdominal pain, Denies diarrhea, Denies nausea and Denies vomiting Genitourinary: Genitourinary: Reports as per HPI, Denies hematuria, Denies dysuria and Reports flank pain Musculoskeletal: Musculoskeletal: Denies back pain and Denies neck pain Neurologic: Denies headache(s) and Denies weakness PMFSH Past Medical History Medical History Migraines hypertension Surgical History Surgical History History of section (~04/16/20) History of hysteroscopy History of lymph node excision Left inguinal lymph node excision as a child, benign finding. History of wisdom tooth extraction Hx laparoscopic cholecystectomy Family History Family History Father Diabetes mellitus Family history of renal failure Mother Diabetes mellitus Family history of migraine headaches Family history of Parkinson's disease Family history of Alzheimer's disease Family history of malignant neoplasm of cervix Other Family history of lung cancer Family history of malignant neoplasm of brain Social History Social History Social History: The patient lives in [place] with her significant other and children. 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 She denies alcohol, tobacco, and illicit substance use. She designates Artem Larkin, her significant other, as her surrogate decision maker and she wishes to be a full code. Substance use: never Spiritual care concerns: No Exam Const: General: no acute distress and well developed Orientation/consciousness: oriented to person, oriented to place, oriented to time and patient oriented x3 HENMT: Head: normocephalic Ears: external ears normal General nose exam: Normal external nose present Eyes: General: appearance normal, both eyes and all related structures Conjunctivae: conjunctivae normal Neck: Neck: normal visual inspection and full ROM Chest: Chest palpation & inspection: normal inspection of the chest and no tenderness Resp: Effort & Inspection: normal respiratory effort Auscultation: clear to auscultation bilaterally Cardio: Rate: regular rate Rhythm: regular rhythm GI: GI Palp: No abdominal tenderness and Yes Soft to palpation Skin: General skin exam: normal color and turgor normal Neuro: General: oriented to person, oriented to place, oriented to time and patient oriented x3 Cognition (Neuro): normal cognition Extrem: General: normal to inspection, full ROM and no pedal edema Psych: Appearance: grossly normal Mental Status: mental status grossly normal Affect: normal affect Course Consultations Consultation #1: Discussed with Dr. Bauer (urology), who recommends a
[2020-06-15] MEDS: MORPHINE SULFATE (*CRX) 4 MG/ML INJ IV PUSH (22:09)
[2020-06-15] MEDS: TAMSULOSIN HCL 0.4 MG CAPSULE PO (23:11)
--- NOTE | 2020-06-15 23:27 | PM.IMHP ---
H&P: HPI History of Present Illness Date/Time: 06/15/20 23:27 Chief Complaint: Left flank pain Narrative: Nasreen Osorio is a 44 year old female past medical history of hypertension presents to ED with complaints of left-sided abdominal pain. Patient had a 8 weeks ago. She then had cholecystitis requiring laparoscopic cholecystectomy 05/19/[address] Leos. At the time she was told she had incidental findings of 2 kidney stones. She then started developing left-sided abdominal pain for last 3 weeks and today it became so severe that she came to the hospital. Patient has no history of kidney stones before. In the ED she had a CT scan of her abdomen pelvis which showed a 4 mm stone at the left UVJ causing moderate left hydroureteronephrosis as well as a 5 mm stone in left kidney. It appears patient is passing stone, patient was given Flomax in the ED. Urology Dr. Bauer agreed to see patient in consultation tomorrow for possible retrieval of kidney stone. Patient states she has had urine with a little blood clot but was not sure if that was her period because she had missed her control and had some spotting. Other than left-sided back pain patient has not had any other symptoms. Review of Systems Review of Systems: Narrative: Constitutional: No Fever, No Chills, No Night Sweats, No Fatigue, No Malaise ENT/Mouth: No Hearing Changes, No Ear Pain, No Nasal Congestion, No Sinus Pain, No Hoarseness, No sore throat, No Rhinorrhea, No Swallowing Difficulty Eyes: No Eye Pain, No Redness, No Vision Changes Cardiovascular: No Chest Pain, No Palpitations, No Dyspnea on Exertion, No Orthopnea, No Claudication, No Edema Respiratory: No Cough, No Sputum, No Wheezing, No Shortness of Breath Gastrointestinal: No Nausea, No Vomiting, No Diarrhea, No Constipation,No Heartburn, No Hematochezia, No Melena. Severe left abdominal pain and back pain. Genitourinary: No Dysuria, No Urinary Frequency, No Urinary Incontinence, No Urgency. May be some hematuria. Musculoskeletal: No Arthralgias, No Myalgias, No Joint Swelling, No Joint Stiffness Skin: No Skin Lesions, No Pruritis, No Hair Changes Neuro: No Weakness, No Numbness, No Paresthesias, No Loss of Consciousness, No Syncope, No Dizziness, No Headache Psych: No Anxiety/Panic, No Depression, No Insomnia Heme: No Bruising, No Bleeding Lymph: No Adenopathy Endocrine: No Polyuria, No Polydipsia, No Temperature Intolerance PMF Past Medical History Medical History Migraines hypertension Surgical History Surgical History History of section (~04/16/20) History of hysteroscopy History of lymph node excision Left inguinal lymph node excision as a child, benign finding. History of wisdom tooth extraction Hx laparoscopic cholecystectomy Family History Family History Father Diabetes mellitus Family history of renal failure Mother Diabetes mellitus Family history of migraine headaches Family history of Parkinson's disease Family history of Alzheimer's disease Family history of malignant neoplasm of cervix Other Family history of lung cancer Family history of malignant neoplasm of brain Social History Social History (Updated 06/15/20 @ 23:50 by Andrei Vásquez DO) Social History: The patient lives in [place] with her significant other and children. 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 She denies alcohol, tobacco, and illicit substance use. She designates Artem Larkin, her significant other, as her surrogate decision maker and she wishes to be a full code. Smoking status: Never smoker Alcohol intake: never Substance use: never Living arrangements: with family Occupation/Education: occupation Additional occupation/education comments:
[2020-06-15 23:35] VITALS: BP 133/97; PULSE 75; RESP 20; O2SAT 98
[2020-06-16] VITALS (11 sets, daily range): BP systolic 88–141; BP diastolic 42–84; PULSE 58–92; RESP 14–20; TEMP 36.5–37.3; O2SAT 98–100; BMI 30.7
[2020-06-16] MEDS: SODIUM CHLORIDE 0.9% IV 1,000 ML 125 ML IV CONT ×2 (00:10→10:22)
--- NOTE | 2020-06-16 00:36 | ADMGEN ---
This patient, Nasreen Osorio, was admitted to [facility]. Patient/family oriented to hospital policies and general routines including ID bracelet, bed and alarms, visiting hours, pain management, procedures, bathroom and other care routines, personal items, smoking policy, room service/diet, and visiting hours. Information on how to activate the Rapid Response Team has been discussed. Patient/Family are encouraged to report perceived risks to care and to ask questions if they do not understand what they are told or what they should do.
[2020-06-16] MEDS: NIFEdipine 30 MG TAB.ER.24 PO ×2 (00:55→08:10)
[2020-06-16] MEDS: MORPHINE SULFATE (*CRX) 4 MG/ML INJ IV PUSH (01:21)
[2020-06-16] MEDS: ONDANSETRON INJ 4 MG/2 ML VIAL IV PUSH (01:21)
[2020-06-16] MEDS: TAMSULOSIN HCL 0.4 MG CAPSULE PO (08:10)
--- NOTE | 2020-06-16 08:19 | PC.NURSE ---
0750-pt passed 600ml of urine with no evidence of new stone. Pt denies pain while urinating or hesitancy.
[2020-06-16 08:31] LABS: Basophils Percent Auto 0.2 % (0.2-1.2); Eosinophils Absolute Auto 0.1 K/mm3 (0-0.3); Eosinophils Percent Auto 1.2 % (0-4.4); Hematocrit 38.9 % (37.0-47.0); Hemoglobin 13.2 g/dL (12.0-15.0); Immature Granulocyte Absolute 0.02 K/mm3 (0.00-0.031); Immature Granulocyte Percent A 0.2 % (0-0.5); Lymphocytes Absolute Auto 2.05 K/mm3 (0.9-3.2); Lymphocytes Percent Auto 24.3 % (18.3-44.2); Mean Corpuscular HGB Conc 33.9 g/dl (32-36); Mean Corpuscular Volume 88.4 fl (80-100); Monocytes Absolute Auto 0.4 K/mm3 (0.1-0.6); Monocytes Percent Auto 4.9 % (2.6-8.5); Neutrophils Absolute Auto 5.8 K/mm3 (1.3-6.7); Neutrophils Percent Auto 69.2 % (45.5-73.1); Platelet Count Result 259 k/mm3 (150-375); Red Cell Distribution Width 13.2 % (11.5-14.5); White Blood Count 8.4 K/mm3 (4.5-10.0)
--- NOTE | 2020-06-16 08:36 | WPDURCON ---
Assessment and Plan Assessment and plan (1) Left ureteral calculus: Code(s): N20.1 - Calculus of ureter Status: Acute Assessment and Plan: Plan to go to the OR this afternoon: Cystoscopy, left ureteroscopy with stone extraction, possible left stent placement, left retrograde pyelogram, possible holmium laser. Keep NPO. (2) Hydronephrosis of left kidney: Code(s): N13.30 - Unspecified hydronephrosis Status: Acute Assessment and Plan: Will resolve after ureteroscopy. (3) Left renal stone: Code(s): N20.0 - Calculus of kidney Status: Acute Assessment and Plan: KUB done this morning does not clearly identify the left renal 5mm stone noted in the CT scan. Will discuss treatment of this stone as an outpatient. Urology Consult Note HPI Date Seen: 06/16/20 Requesting Physician: Rock Bernard PA-C Primary Care Provider: UNKNOWN,DOCTOR Consult Narrative Narrative: Nasreen Osorio is a 44 year old female who presented to the ER yesterday with worsening left flank pain that began three weeks ago. It is now radiating to the LLQ and groin. She also c/o nausea. She denies dysuria, hematuria, fever, chills, vomiting or urinary frequency. Her creatinine was normal yesterday at 0.80, WBC is 10.2 and culture is pending. She has no prior history of kidney stones, but was told about her current two stones prior to her cholecystectomy a few weeks ago but that they were non obstructive at that time. She is s/p hysterectomy and cholecystectomy. CT scan shows a 4mm Left UVJ stone with moderate hydronephrosis as well as a 5mm stone that is non obstructive in the left kidney. Review of Systems Cardiovascular: Cardiovascular: Denies chest pain Respiratory: Respiratory: Reports no additional respiratory complaints Gastrointestinal: Gastrointestinal: Reports abdominal pain, Reports nausea and Reports vomiting Genitourinary: Genitourinary: Denies hematuria, Denies dysuria, Reports flank pain and Denies urinary urgency [facility] Past Medical History Medical History Anxiety Left renal stone Left ureteral calculus Migraines hypertension Surgical History Surgical History History of section (~04/16/20) History of hysteroscopy History of lymph node excision Left inguinal lymph node excision as a child, benign finding. History of wisdom tooth extraction Hx laparoscopic cholecystectomy Family History Family History Father Diabetes mellitus Family history of renal failure Mother Diabetes mellitus Family history of migraine headaches Family history of Parkinson's disease Family history of Alzheimer's disease Family history of malignant neoplasm of cervix Other Family history of lung cancer Family history of malignant neoplasm of brain Social History Social History Social History: The patient lives in [place] with her significant other and children. 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 She denies alcohol, tobacco, and illicit substance use. She designates Artem Larkin, her significant other, as her surrogate decision maker and she wishes to be a full code. 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
[2020-06-16 08:48] LABS: Alanine Aminotransferase 135 U/L (4-35); Albumin Level 3.8 g/dL (3.5-5.1); Alkaline Phosphatase 134 U/L (38-126); Anion Gap 7 mmol/L (8-16); Aspartate Amino Transferase 61 U/L (14-36); Bilirubin,Total 0.8 mg/dL (0.2-1.3); Blood Urea Nitrogen 14 mg/dL (7-17); Calcium 8.7 mg/dL (8.4-10.2); Carbon Dioxide 26 mmol/L (22-30); Chloride 106 mmol/L (98-107); Estimated CRCL calculation 84 ml/min; Estimated Glomerular Filt Rate > 60; Glucose 101 mg/dL (65-105); Magnesium 2.2 mg/dL (1.6-2.3); Potassium 3.6 mmol/L (3.4-5.0); Sodium 139 mmol/L (137-145)
--- NOTE | 2020-06-16 08:58 | WPDANESEPP ---
Anes - Eval Pre Procedure Procedure: Operation Date: 06/16/20 16:00 Proposed Procedures p CYSTOSCOPY,LEFT RETROGRADE PYELOGRAM,LEFT URETEROSCOPY,LEFT STONE EXTRACTION,POSSIBLE HOLMIUM LASER,POSSIBLE STENT - Carlos Eduardo Bauer MD Date/Time: 06/16/20 08:58 Pre Op Diagnosis: left ureteralithiasis Patient Data Age: 44 Gender: F Height: 5 ft 2 in Weight: 76.3 kg Last Vital Signs Temp 98.0 F 06/16/20 06:00 Pulse 58 L 06/16/20 06:00 Resp 20 06/16/20 06:00 BP 129/66 06/16/20 06:00 Pulse Ox 98 06/16/20 06:00 Allergies Allergy/AdvReac Type Severity Reaction Status Date / Time No Known Allergies Allergy Verified 06/15/20 23:10 Home Medications Medication Instructions Recorded Confirmed Type nifedipine 30 mg PO BID 05/16/20 06/16/20 History norethindrone-e.estradiol-iron 1 tablet PO DAILY 06/16/20 06/16/20 History [] Laboratory Tests 06/15/20 06/15/20 06/15/20 19:46 19:46 19:46 WBC 10.2 K/mm3 H K/mm3 (4.5-10.0) RBC 4.56 M/mm3 M/mm3 (4.2-5.4) Hgb 13.7 g/dL g/dL (12.0-15.0) Hct 39.8 % % (37.0-47.0) MCV 87.3 fl fl (80-100) MCH 30.0 pg pg (26-34) MCHC 34.4 g/dl g/dl (32-36) RDW 13.1 % % (11.5-14.5) Plt Count 293 k/mm3 k/mm3 (150-375) MPV 9.0 fl fl (7.4-10.4) Immature Gran % (Auto) 0.3 % % (0-0.5) Neut % (Auto) 78.4 % H % (45.5-73.1) Lymph % (Auto) 16.4 % L % (18.3-44.2) [place] % (Auto) 4.0 % % (2.6-8.5) Eos % (Auto) 0.7 % % (0-4.4) Baso % (Auto) 0.2 % % (0.2-1.2) Lymph # (Auto) 1.66 K/mm3 K/mm3 (0.9-3.2) [place] # (Auto) 0.4 K/mm3 K/mm3 (0.1-0.6) Eos # (Auto) 0.1 K/mm3 K/mm3 (0-0.3) Baso # (Auto) 0.0 K/mm3 K/mm3 (0.0-0.1) Abs Immat Gran (auto) 0.03 K/mm3 K/mm3 (0.00-0.031) Absolute Neuts (auto) 8.0 K/mm3 H K/mm3 (1.3-6.7) Absolute Nucleated RBC 0.0 K/mm3 K/mm3 (0.0-0.012) Nucleated RBC % 0.0 % % (0.0-0.2) Sodium 139 mmol/L mmol/L (137-145) Potassium 3.8 mmol/L mmol/L (3.4-5.0) Chloride 103 mmol/L mmol/L (98-107) Carbon Dioxide 27 mmol/L mmol/L (22-30) Anion Gap 9 mmol/L mmol/L (8-16) BUN 18 mg/dL H mg/dL (7-17) Creatinine 0.80 mg/dL mg/dL (0.7-1.0) Estim Creat Clear Calc 73 ml/min ml/min Estimated GFR > 60 (59 - ) Glucose 131 mg/dL H mg/dL (65-105) Calcium 9.4 mg/dL mg/dL (8.4-10.2) Magnesium Total Bilirubin 0.6 mg/dL mg/dL (0.2-1.3) AST 107 U/L H U/L (14-36) ALT 181 U/L H U/L (4-35) Alkaline Phosphatase 159 U/L H U/L (38-126) Total Protein 8.0 g/dL g/dL (6.3-8.2) Albumin 4.4 g/dL g/dL (3.5-5.1) Lipase 109 U/L U/L (23-300) Urine Color Yellow (Yellow) Urine Appearance Clear (Clear) Urine pH 6.0 (5.0-9.0) Ur Specific [place] 1.015 (1.001-1.035) Urine Protein 1+ mg/dL H mg/dL (Negative) Urine Glucose (UA) Negative mg/dL mg/dL (Negative) Urine Ketones Negative mg/dL mg/dL (Negative) Ur Blood (Man) 3+ H (Negative) Urine Nitrate Negative (Negative) Urine Bilirubin Negative (Negative) Urine Urobilinogen Negative mg/dL mg/dL (<2.0) Leukocyte Esterase Rfl 1+ EVELIN/UL H EVELIN/UL (Negative) Urine RBC >75 /hpf H /hpf (0-2) Urine WBC 10-15 /hpf H /hpf Ur Squamous Epith Cells Many /hpf H /hpf (Few) Urine Bacteria Trace /hpf /hpf Urine Mucus Few /lpf H /lpf 06/16/20 06/16/20 08:17 08:17 WBC 8.4 K/mm3 K/mm3 (4.5-10.0) RBC 4.40 M/mm3 M/mm3 (4.2-5.4) Hgb 13.2 g/dL g/dL
--- NOTE | 2020-06-16 10:17 | WPDANESEPPF ---
Anes - Initial Pre Proc Eval Procedure: Operation Date: 06/16/20 16:00 Proposed Procedures p CYSTOSCOPY,LEFT RETROGRADE PYELOGRAM,LEFT URETEROSCOPY,LEFT STONE EXTRACTION,POSSIBLE HOLMIUM LASER,POSSIBLE STENT - Carlos Eduardo Bauer MD Date/Time: 06/16/20 10:17 Surgeon: Rock Bernard PA-C Pre Op Diagnosis: left ureteralithiasis Patient Data Age: 44 Gender: F Height: 1.57 m Weight: 76.3 kg Last Vital Signs Temp 36.7 C 06/16/20 06:00 Pulse 58 L 06/16/20 06:00 Resp 20 06/16/20 06:00 BP 129/66 06/16/20 06:00 Pulse Ox 98 06/16/20 06:00 Allergies Allergy/AdvReac Type Severity Reaction Status Date / Time No Known Allergies Allergy Verified 06/15/20 23:10 Home Medications Medication Instructions Recorded Confirmed Type nifedipine 30 mg PO BID 05/16/20 06/16/20 History norethindrone-e.estradiol-iron 1 tablet PO DAILY 06/16/20 06/16/20 History [] Laboratory Tests 06/15/20 06/15/20 06/15/20 19:46 19:46 19:46 WBC 10.2 K/mm3 H K/mm3 (4.5-10.0) RBC 4.56 M/mm3 M/mm3 (4.2-5.4) Hgb 13.7 g/dL g/dL (12.0-15.0) Hct 39.8 % % (37.0-47.0) MCV 87.3 fl fl (80-100) MCH 30.0 pg pg (26-34) MCHC 34.4 g/dl g/dl (32-36) RDW 13.1 % % (11.5-14.5) Plt Count 293 k/mm3 k/mm3 (150-375) MPV 9.0 fl fl (7.4-10.4) Immature Gran % (Auto) 0.3 % % (0-0.5) Neut % (Auto) 78.4 % H % (45.5-73.1) Lymph % (Auto) 16.4 % L % (18.3-44.2) [place] % (Auto) 4.0 % % (2.6-8.5) Eos % (Auto) 0.7 % % (0-4.4) Baso % (Auto) 0.2 % % (0.2-1.2) Lymph # (Auto) 1.66 K/mm3 K/mm3 (0.9-3.2) [place] # (Auto) 0.4 K/mm3 K/mm3 (0.1-0.6) Eos # (Auto) 0.1 K/mm3 K/mm3 (0-0.3) Baso # (Auto) 0.0 K/mm3 K/mm3 (0.0-0.1) Abs Immat Gran (auto) 0.03 K/mm3 K/mm3 (0.00-0.031) Absolute Neuts (auto) 8.0 K/mm3 H K/mm3 (1.3-6.7) Absolute Nucleated RBC 0.0 K/mm3 K/mm3 (0.0-0.012) Nucleated RBC % 0.0 % % (0.0-0.2) Sodium 139 mmol/L mmol/L (137-145) Potassium 3.8 mmol/L mmol/L (3.4-5.0) Chloride 103 mmol/L mmol/L (98-107) Carbon Dioxide 27 mmol/L mmol/L (22-30) Anion Gap 9 mmol/L mmol/L (8-16) BUN 18 mg/dL H mg/dL (7-17) Creatinine 0.80 mg/dL mg/dL (0.7-1.0) Estim Creat Clear Calc 73 ml/min ml/min Estimated GFR > 60 (59 - ) Glucose 131 mg/dL H mg/dL (65-105) Calcium 9.4 mg/dL mg/dL (8.4-10.2) Magnesium Total Bilirubin 0.6 mg/dL mg/dL (0.2-1.3) AST 107 U/L H U/L (14-36) ALT 181 U/L H U/L (4-35) Alkaline Phosphatase 159 U/L H U/L (38-126) Total Protein 8.0 g/dL g/dL (6.3-8.2) Albumin 4.4 g/dL g/dL (3.5-5.1) Lipase 109 U/L U/L (23-300) Urine Color Yellow (Yellow) Urine Appearance Clear (Clear) Urine pH 6.0 (5.0-9.0) Ur Specific [place] 1.015 (1.001-1.035) Urine Protein 1+ mg/dL H mg/dL (Negative) Urine Glucose (UA) Negative mg/dL mg/dL (Negative) Urine Ketones Negative mg/dL mg/dL (Negative) Ur Blood (Man) 3+ H (Negative) Urine Nitrate Negative (Negative) Urine Bilirubin Negative (Negative) Urine Urobilinogen Negative mg/dL mg/dL (<2.0) Leukocyte Esterase Rfl 1+ EVELIN/UL H EVELIN/UL (Negative) Urine RBC >75 /hpf H /hpf (0-2) Urine WBC 10-15 /hpf H /hpf Ur Squamous Epith Cells Many /hpf H /hpf (Few) Urine Bacteria Trace /hpf /hpf Urine Mucus Few /lpf H /lpf 06/16/20 06/16/20 08:17 08:17 WBC 8.4 K/mm3 K/mm3 (4.5-10.0) RBC 4.40 M/mm3 M/mm3 (4.2-
--- NOTE | 2020-06-16 11:10 | PM.DS ---
DS: Admitting Diagnosis Admitting Diagnosis Admitting Diagnosis: Left ureteral stone with left hydronephrosis DS: Discharge Diagnosis Discharge Diagnosis (1) Left ureteral calculus: Code(s): N20.1 - Calculus of ureter Status: Acute Assessment and Plan: 4 mm stone which is in the left UVJ with moderate left hydronephrosis. Urology Dr. Bauer consulted; patient to go for cystoscopy and left ureteroscopy with stone extraction, possible left stent placement today. Likely discharge after procedure if okay from Urology standpoint. Pain has much improved. UA possibly suggestive of infection, although no fever and resolved minimal white count. Discussed with KASIE Roberto and will proceed with treating empirically with 5 day course of nitrofurantoin continue Flomax daily to help pass stone pain control: Ketorolac, morphine IV fluids normal saline for now nausea: Zofran nitrofurantoin x 5 days after discharge F/u with Urology and PCP (2) Hydronephrosis of left kidney: Code(s): N13.30 - Unspecified hydronephrosis Status: Acute Assessment and Plan: -see above (3) Transaminitis: Code(s): R74.01 - Elevation of levels of liver transaminase levels Status: Acute Assessment and Plan: mild elevation of liver enzymes, patient had recent cholecystectomy beginning of the month. May need to follow-up outpatient with PCP DS: Summary Hospital Course Reason for hospitalization: Left ureteral calculus, hydronephrosis of left kidney Hospital Course: Date of arrival: 06/15/20 Date of discharge: 06/16/20 Patient is a 44 yo F with history of hypertension, recent 8 weeks prior, and recent cholecystectomy roughly 4 weeks prior who presented to the ED on 06/15 from home with complaints of left sided abdominal pain. While in the ED, CT abd/pelvis showed 4 mm stone at left UVJ causing moderate left hydroureteronephrosis as well as a 5mm stone in left kidney. Urology was consulted from the ED. Patient admitted under this setting. Please see H&P for further details. Patient was admitted to the hospitalist service for further management/treatment. Patient was evaluated by Urology and underwent a cystoscopy, left ureteroscopy, stone extraction, retrograde pyelogram per Dr. Bauer on 06/16. She tolerated procedure well with no immediate complications and was okay for discharge from Urology standpoint. Patient was given one time dose of rocephin 1 g IV on 06/16 and then given a 5 day course of nitrofurantoin given her abnormal UA and previous culture earlier in the month growing enterococcus species. UCx returned the following day as showing no growth, however it was decided to have patient finish antibiotic course. She was to follow up with Urology and PCP as an outpatient. She was to obtain CMP in 2 weeks form discharge as well. Patient agreeable and comfortable with plan for discharge. Patient hemodynamically stable and in improved condition for discharge on 06/16 Status at Discharge Overall status at discharge: patient is progressing back to baseline Time Spent with Patient Time attestation: Total time spent providing and/or coordinating discharge services: Time spent: Greater than 30 minutes Exam Narrative: Exam Narrative: General: Patient resting supine in bed in no acute distress. HEENT: Normocephalic, EOMI, oral mucosa moist. Cardiovascular: Rate and rhythm are regular. No notable murmur, rub, or gallop. Respiratory: Lungs clear to auscultation all craft. Non-labored breathing. Abdomen: Soft, mild ttp LLQ, non-distended, bowel sounds present. Extremities: Peripheral pulses intact. No edema. NTTP b/l calves Neuro: No focal neurological deficits. Speech is clear. DS: Data Data Completed and Pending Labs on day of disc
--- NOTE | 2020-06-16 15:10 | PC.NURSE ---
1510-pt taken to surgery
--- NOTE | 2020-06-16 15:31 | WPDHPUPDATE1 ---
History and Physical Update Update Date/Time: 06/16/20 15:31 History and Physical has been reviewed, including an updated exam of the patient. There are NO changes in the patient's condition. Risks, benefits, and alternatives have been discussed and questions answered. Patient agrees to proceed with procedure.
[2020-06-16] MEDS: LACTATED RINGERS 1,000 ML 30 ML IV CONT (15:39)
[2020-06-16] MEDS: LIDOCAINE HCL 2% GEL UROJET 10 ML PKG MUCOUS MEM (16:28)
--- NOTE | 2020-06-16 16:33 | PM.PROC ---
Procedure Note - Detailed Date of procedure: 06/16/20 Pre-op diagnosis: left ureteralithiasis Post-op diagnosis: same Procedure performed: Cystoscopy, left ureteroscopy, stone extraction, retrograde pyelogram Description of procedure: Informed consent was obtained. Patient taken the operating. She was given preoperative antibiotics in the emergency department. The patient was induced anesthesia she was placed in dorsal thigh position. She was prepped and draped normal sterile fashion. We inserted a 22 F cystoscope through the urethra and the bladder reinspected the bladder and no mucosal abnormalities noted. We cannulated the left ureteral orifice with the wire within dilated the distal ureter with the 810 coaxial dilator. We then advanced a semi rigid ureteral scope into the distal ureter and encountered the 4mm stone. It was grasped and removed. We then inspected the distal half of the ureter and there were no residual stones. A retrograde pyelogram revealed moderate hydronephrosis. Contrast quickly left kidney and passed down the ureter into the bladder. As there was minimal manipulation we elected not to place a stent. 10cc of viscous lidocaine were instilled. The patient was then taken to recovery room in stable condition. Anesthesia: GLMA Surgeon: Carlos Eduardo Bauer MD Estimated blood loss (mL): 0 Drains: No Packing: No Pathology: yes Complications: No immediate complications Condition: stable Disposition: PACU
[2020-06-16] MEDS: fentaNYL CITRATE INJ (*CRX) 100 MCG/2 ML VIAL 25 MCG IV PUSH ×2 (16:58→17:01)
--- NOTE | 2020-06-16 18:10 | PC.NURSE ---
1730-pt back from surgery recovery. No distress noted. Will continue to monitor.
--- NOTE | 2020-06-16 19:22 | PC.NURSE ---
1920-pt given D/C orders and instructions. Questions answered and verbalized understanding. AOx4. PIV removed intact. Taken via wheelchair to waiting vehicle. No distress noted or verbalized at time of departure.
== END 2020-06-16 19:22 | disposition home or self-care (01) ==
LOC: ANHED 23:05 → ANHCPC 23:22
PROVIDERS: Emergency Medicine; Physician Assistant; Urology; Admitting Provider Student in an Organized Health Care Education/Training Program; Emergency Provider Emergency Medicine; Visit Provider Internal Medicine
PROC: (CPT 52352; principal; 2020-06-16 16:00)
DX: N13.2 Hydronephrosis with renal and ureteral calculous obstruction (principal); R74.01 Elevation of levels of liver transaminase levels
CPT/HCPCS: 52352; 36415; 74018; 74176; 74420; 80053; 81001; 81025; 82365; 83690; 83735; 85025; 87086; 88300; 96361; 96374; 96375; 96376; 99285; A9270; C1769; G0378; J0696; J1100; J1170; J1885; J2250; J2270; J2370; J2405; J2704; J3010; J7030; J7120; Q9966

== ENCOUNTER 2024-11-02 16:44 | Emergency (ER) | payer OTHER, SELFPAY ==
--- NOTE | ~2024-11-02 | XR_ITS ---
CHEST RADIOGRAPH, PA AND LATERAL CLINICAL HISTORY: palpitations . COMPARISON: 07/07/2015 TECHNIQUE: PA and lateral views of the chest. FINDINGS The cardiomediastinal silhouette is unremarkable. The lungs are clear. Visualized osseous structures and soft tissues are unremarkable. IMPRESSION: No focal infiltrate or effusion. Reviewed, dictated and finalized at location A.
--- OUTSIDE RECORDS SUMMARY | 2024-11-02 16:46 | XMS_ITS | Clinical Summary ---
Author Organization [facility] Address [address] [place] [address] Care Team Providers Care Byproducts Maker Name Role Phone Mauricio Stone MD Primary Care Provider [phone] Source Comments [facility],non-owned Affiliates and Associated Physician Practices is amultiple site organization consisting of ambulatory clinics and hospital sitesin [place], [place], [place] and [place]. This disclosure is being madepursuant to the Care Everywhere program and may not contain all information available regarding this patient. Last updated 18.[employer] Allergies No known active allergies Medications * Be aware that medications may not be up to date on this document. Alwaysverify current medications with the patient. polyethylene glycol 3350 (MIRALAX) 17 g packet Take 17 g by mouth once daily as needed for Constipation 170 g 1 0 Active acetaminophen (TYLENOL) 325 MG tablet Take 2 tablets by mouth every 6 hours as needed for Fever or Pain Maximum allowable Acetaminophen amount = 4 Grams (4000 mg) / 24 hours. 90 tablet 0 Active oxyCODONE, immediate release, (ROXICODONE) 5 MG tablet Take 1 tablet by mouth every 4 hours as needed for Pain 12 tablet 0 Active ibuprofen (MOTRIN) 600 MG tablet Take 1 tablet by mouth every 6 hours as needed for Pain 90 tablet 0 Active docusate sodium (COLACE) 100 MG capsule Take 1 capsule by mouth 2 times daily 60 capsule 1 0 Active Active Problems Problem Noted Date Diagnosed Date Breech presentation, no version 04/16/2020 Depression screen 02/05/2020 Overview (03/18/2020): 02/05/2020 Nasreen Jo was screened for depression using the [place] Depression Scale (EPDS) at her [facility] initial evaluation on 02/05/2020. Her initial score at baseline was 7. Based off of her score of 7, Nasreen does not warrant follow up. Patient will continue to be screened throughout , at intervals no closer than two weeks, for continued surveillance and early identification of depression until delivery. Patient reports mental health history. Diagnoses include anxiety. 03/18/20 EPDS F/U=9 Footprints Patient 02/05/2020 Overview (02/05/2020): Ave Hicks RN will be Nasreen's [facility] Floor Inspector, call office [phone] High Risk NIPT -- trisomy 21 12/29/2019 AMA (advanced maternal age) multigravida 35+, first trimester 12/12/2019 Overview (12/12/2019): Pt declined NIPT at primary OB visit. Dating 12/02/19 19w2d= MATHIEU 11/8 A+ Neg, Imm, HIV-NR Resolved Problems Problem Noted Date Diagnosed Date Resolved Date abnormality in - Trisomy 21 01/21/2020 04/19/2020 Overview (04/15/2020): Images from the original note were not included. [facility] PATIENT--PLEASE CALL [phone] (ex 2) IF TRIAGED OR ADMITTED Care Provider: Dr. Restrepo- OB; Referred by Dr. Rojas [facility] consultants involved: Darling- Nurse Coordinator; Dr. Marroquin- CT surgery; Dr. Reyes- Neonatology Diagnosis: Trisomy 21 per NIPT; declined amnio; Complete AV canal with primum ASD, inlet VSD. Normal biventricular systolic function, balanced ventricles. No AV valve regurgitation Planned surveillance: Initial [facility] US/echo 02.04 Delivery location: [facility] Delivery mode: 10.30 at 1330 C/S with Dr. Restrepo Desired Delivery GA: 39w follow up: Per Dr. Tracy: AV canal generally does not cause hemodynamic issues in the period. If the VSD component is large enough, then symptoms may develop in the first few weeks of life and are often managed medically. Surgical repair is generally undertaken at 5-6 months of life with good outcomes. This type of cardiac defect is often associated with Trisomy 21. Per Dr. Reyes: echo at [facility]. Patient should be discussed with cardiology. If patient is stable after delivery, may be able to be discharged from [place] with cardiology follow-up as an outpatient. However, if patient is hemodynamically unstable, or requires consultation from any other services postnatally, they will need to be transferred to [facility] for further care. Theatre Director: Dr. Shana Romero [phone]; [phone](fax) Autopsy indicated: Genetics note: genetic diagnostic testing was not performed. Patient desires karyotype to be performed on cord blood at the time of delivery. Please draw at least 3cc cord blood in green top sodium heparin tube. If after office hours, on a weekend or a holiday, please hold in refrigerator in sendout laboratory and call the genetic counselor at [phone] to notify that specimen is ready for sendout. Order can be placed by genetic counselor in baby's chart at that time. Please request Genetics consult postnatally by calling the Genetics office at [phone] prior to ordering additional genetic studies. Car Repairer Apprentice Concerns: Care plan based on evaluation and is subject to change based on assessment. See Images or Cardiac under Chart Review for US/ ECHO/ MRI reports. Immunizations Immunization Administration Dates Next Due MMR 04/17/2020(Deferred: See Comment s - immune) TDAP (7yrs+) 04/17/2020(Deferred: See Comment s - received) Family History Medical History Relation Name Comments ADHD Neg Hx Allergies Neg Hx Aneurysm Neg Hx Asthma Neg Hx Autoimmune Disease Neg Hx Bipolar Disorder Neg Hx CVA<55(male) Neg Hx CVA<65(female) Neg Hx Cancer - Breast Neg Hx Cancer - Colon Neg Hx Cancer - Other Neg Hx Cancer - Ovarian Neg Hx Cancer - Pancreatic Neg Hx Cancer - Prostate Neg Hx Childhood Hearing Disorder Neg Hx Clotting Disorder Neg Hx Depression Neg Hx Diabetes Neg Hx Eczema Neg Hx Genetic Neg Hx Heart defect Neg Hx Hypercholesterolemia Neg Hx Hypertension Neg Hx VT<55(male) Neg Hx VT<65(female) Neg Hx Mental Health Neg Hx Migraine Neg Hx Osteoporosis Neg Hx Seizures Neg Hx Sudd. <30 Neg Hx Thyroid Disease Neg Hx Ulcerative Colitis Neg Hx Social History Tobacco Use Types Packs/Day Years Used Date Smoking Tobacco: Never Smokeless Tobacco: Never Alcohol Use Standard Drinks/Week Comments Never 0 (1 standard drink = 0.6 oz pur e alcohol) AUDIT-C Answer Date Recorded Q1: How often do you have a drink containing alc ohol? Never 04/16/2020 Average Number of Drinks Not on file 020 Frequency of Binge Drinking Not on file 03/20 Comments No Sex and Gender Information Value Date Recorded Sex Assigned at Not on file Legal Sex Female 6:29 AM INDIAN NANNY Gender Identity Not on file Sexual Orientation Not on file Last Filed Vital Signs Vital Sign Reading Time Taken Comments Blood Pressure 148/74 04/19/2020 12:45 PM INDIAN NANNY Pulse 77 04/19/2020 12:45 PM INDIAN NANNY Temperature 36.6 C (97.9 F) 04/19/2020 7:40 AM INDIAN NANNY Respiratory Rate 18 04/19/2020 7:40 AM INDIAN NANNY Oxygen Saturation 100% 04/19/2020 7:40 AM INDIAN NANNY Inhaled Oxygen Concentration - - Weight 83.5 kg (184 lb) 04/16/2020 12:51 PM CDT Height 157.5 cm (5' 2 ) 04/16/2020 12:51 PM CDT Body Mass Index 33.65 04/16/2020 12:51 PM CDT Plan of Treatment Health Maintenance Due Date Last Done Comments COLOGUARD (AGES 45-75) - COL ON CA SCREENING 1974 COLON MONITORING 1974 COLONOSCOPY - COLON CA SCREENING 1974 CT COLONOGRAPHY - COLON CA SCREENING 1974 Colorectal Cancer Screening 1974 FIT - COLON CA SCREENING 1974 FLEX SIG - COLON CA SCREENING 1974 LIPID TESTING 1974 MAMMOGRAM 1974 HIV SCREENING 1989 HEPATITIS C SCREENING 08/08/1992 DTAP/TDAP/TD VACCINES (1 - Tdap) 1993 HEPATITIS B VACCINE (1 of 3 - 19+ 3-dose series) 1993 COVID-19 VACCINE (2023-2 5 season) 2024 DEPRESSION SCREENING 06/18/2024 PNEUMOCOCCAL VACCINE 50+ (1 of 1 - PCV) 2024 ZOSTER VACCINE (1 of 2) 2024 INFLUENZA VACCINE (Season Ended) 2025 HIB VACCINE Aged Out No longer eligi ble based on patient's age to complete this topic HPV VACCINE Aged Out No longer eligi ble based on patient's age to complete this topic MENINGOCOCCAL (Group B) VACC INE SHARED DECISION-MAKING Aged Out No longer eligibl e based on patient's age to complete this topic MENINGOCOCCAL GROUPS A/C/Y/W VACCINE Aged Out No longer eligible b ased on patient's age to complete this topic Insurance ANTHEM Advance Directives * Full Code (Latest Code Status on File) Date Activated Date Inactivated Comments 04/16/2020 12:20 PM 04/19/2020 3:48 PM Care Teams Byproducts Maker Relationship Specialty Start Date End Date Mauricio Stone MD [address] [place] [id number] PCP - General Family Medicine 02/14/16
--- OUTSIDE RECORDS SUMMARY | 2024-11-02 16:46 | XMS_ITS | Referral Summary ---
Author Organization [address] [address] Care Team Providers Care Circus Agent Name Role Phone Unknown, Notinfile Primary Care Provider Unavail able Encounters Date Type Department Care Team Description 09/15/2024 Results Follow-Up [facility] at [address] [phone] Noelle Hernandez NP Urine culture Urine, clean voided 09/13/2024 7:21 PM CDT - 09/13/2024 11:59 PM CDT Hospital Encounter [address] [address] Cystitis with hematuria Discharge Disposition: Discharge to home or self care 09/13/2024 6:00 PM CDT Office Visit [facility] Care at [address] [phone] Yamile Hamilton PA Cystitis with hematuria (Primary Dx) 08/28/2024 8:30 AM CDT Office Visit [facility] Care at [address] [phone] Rocío Turcios NP Acute maxillary sinusitis, recurrence not specified (Primary Dx) from Last 3 Months Allergies No known active allergies Medications fluticasone propionate (FLONASE) 50 mcg/actuation nasal sprayIndication s:Acute maxillary sinusitis, recurrence not specified Administer 2 sprays into each nostril daily for 14 days 1 each 5 Active Active Problems Problem Noted Date Diagnosed Date Breech presentation, no version 04/16/2020 Abnormal chromosomal and gen etic finding on screening mother 12/29/2019 Resolved Problems Problem Noted Date Diagnosed Date Resolved Date AMA (advanced maternal age) multigravida 35+, first trimester 12/12/2019 02/05/2024 Overview (02/05/2024): Pt declined NIPT at primary OB visit. Dating 12/02/19 19w2d= MATHIEU 11/8 A+ Neg, Imm, HIV-NR Social History Tobacco Use Types Packs/Day Years Used Date Smoking Tobacco: Never Smokeless Tobacco: Never Tobacco Cessation:Counseling Given: Not Answered Comments No Sex and Gender Information Value Date Recorded Sex Assigned at Not on file Legal Sex Female 11:53 PM CDT Gender Identity Not on file Sexual Orientation Not on file Last Filed Vital Signs Vital Sign Reading Time Taken Comments Blood Pressure 147/83 09/13/2024 6:00 PM CDT Pulse 81 09/13/2024 6:00 PM CDT Temperature 37 C (98.6 F) 09/13/2024 6:00 PM CDT Respiratory Rate 18 09/13/2024 6:00 PM CDT Oxygen Saturation 97% 09/13/2024 6:00 PM CDT Inhaled Oxygen Concentration - - Weight 103 kg (227 lb) 09/13/2024 6:00 PM CDT Height 157.5 cm (5' 2 ) 09/13/2024 6:00 PM CDT Body Mass Index 41.52 09/13/2024 6:00 PM CDT Plan of Treatment Not on file Procedures Procedure Name Priority Date/Time Associated Diagnosis Comments URINE CULTURE Routine 09/13/2024 7:21 PM CDT Cystitis with hematuria POCT URINALYSIS DIPSTICK Routine 09/13/2024 7:17 PM CDT Cystitis with hematuria POC INFLUENZA A/B, COVID-19 ANTIGEN Routine 08/28/2024 8:27 AM CDT Acute maxillary sinusitis, recurrence not specified from Last 3 Months Results * Urine culture Urine, clean voided (09/13/2024 7:21 PM CDT) Report Final Report: Less than 100,000 colonies/mL (clinically insignificant growth based on current clinical standards) Comment:Testing performed by : [facility], [address] [place]., [address] Organism (CLINICALLY INSIGNIFICANT [facility] Urine, clean voided 09/13/2024 7:21 PM CDT 09/14/2024 4:05 AM CDT Narrative ALEXANDREA - 09/15/2024 11:45 AM CDT Testing performed by [facility] Microbiology Laboratory ([phone]) Yamile DAILY LAB MICROBIOLOGY - GENER AL ORDERABLES Final Result ALEXANDREA [address] [place] [address] * (ABNORMAL) POCT urinalysis dipstick (09/13/2024 7:17 PM CDT) Pathologist [facility] Color, Urine, POC Light Yellow Clarity, ur, POC Clear Clear Glucose, ur, POC Negative Negative MG/DL Bilirubin, ur, POC Negative Negative, Small, Moderate, Large Ketones, ur, POC Negative Negative Specific [place], POC 1.020 1.003 - 1.030 Blood, ur, POC Moderate(A) Negative pH, ur, POC 6.0 5.0 - 8.0 Protein, ur, POC 30.(A) Negative Urobilinogen, urine, POC 0.2 0.2 - 1.0 mg/dL Nitrite, ur, POC Negative Negative Leukocytes, ur, POC Small(A) Negative Lot Number [id number] Urine 09/13/2024 7:17 PM CDT Yam[facility] DAILY POINT OF CARE TEST ORDER YURI Final Result * POC Influenza A/B, COVID-19 antigen (08/28/2024 8:27 AM CDT) Influenza A Ag, POC Negative Negative [facility] Influenza B Ag, POC Negative Negative [facility] COVID-19 Ag POC Presumptive Negative Presumptive Negative, Invalid [facility] Nasal 08/28/2024 8:27 AM CDT Rocío Turcios NP POINT OF CARE TEST ORDERABLES F inal Result [facility] [address] [place] [address], [facility] from Last 3 Months Insurance [facility] Care Teams Circus Agent Relationship Specialty Start Date End Date Unknown, Notinfile PCP - General 02/15/24
--- OUTSIDE RECORDS SUMMARY | 2024-11-02 16:46 | XMS_ITS | Clinical Summary ---
Author Organization [facility] [address] Address [address] [place] [id number] Care Team Providers Care Asp Net Software Developer Name Role Phone Unknown, Notinfile Primary Care Provider Unavail able Allergies No known active allergies Medications fluticasone [...] primary OB visit. Dating 12/02/19 19w2d= MATHIEU 11 A+ Neg, Imm, HIV-NR Encounters Date Type Department Care Team Description 09/15/2024 Results Follow-Up [facility] Care at [address] [phone] Noelle Hernandez, KASIE Urine culture Urine, clean voided 09/13/2024 7:21 PM CDT - 09/13/2024 11:59 PM CDT Hospital Encounter [address] [address] Cystitis with hematuria Discharge Disposition: Discharge to home or self care 09/13/2024 6:00 PM CDT Office Visit [facility] at [address] [phone] Yamile Hamilton PA Cystitis with hematuria (Primary Dx) 08/28/2024 8:30 AM CDT Office Visit [facility] at [address] [phone] Rocío Turcios NP Acute maxillary sinusitis, recurrence not specified (Primary Dx) from Last 3 Months Social History Tobacco Use Types Packs/Day Years Used Date Smoking Tobacco: Never Smokeless Tobacco: Never Tobacco Cessation:Counseling Given: Not Answered Comments No Sex and Gender Information Value Date Recorded Sex Assigned at Not on file Legal Sex Female 11:53 PM CDT Gender Identity Not on file Sexual Orientation Not on file Obstetrics History Last Filed Vital Signs Vital Sign Reading [...] 09/13/2024 6:00 PM CDT Plan of Treatment Health Maintenance Due Date Last Done Comments Breast Cancer Screening-Mammogram 1974 Cervical Cancer Screening 1974 Colon Cancer Screening-Colonoscopy 1974 Depression Screening 1974 Hepatitis C Screening 1974 DTaP/Tdap/Td Vaccine (1 - Tdap) 1985 Hepatitis B Screening 1992 Regular Well Visit/Exam 18-64 1992 Zoster Vaccine (1 of 2) 2024 Influenza Vaccine (Season Ended) 2025 Pneumococcal vaccine <65 Aged Out No longer eligible based on patient's age to complete this topic Procedures Procedure Name Priority Date/Time Associated Diagnosis [...] current clinical standards) Comment:Testing performed by : [facility], [address] [place]., [address] Organism (CLINICALLY INSIGNIFICANT GROWTH [facility] Urine, clean voided 09/13/2024 7:21 PM CDT 09/14/2024 4:05 AM CDT Narrative ALEXANDREA - 09/15/2024 11:45 AM CDT Testing performed by [facility] Microbiology Laboratory ([phone]) Yam[facility] DAILY LAB MICROBIOLOGY - [facility] ORDERABLES Final Result ALEXANDREA [address] [place] [address] * (ABNORMAL) POCT urinalysis dipstick (09/13/2024 7:17 PM CDT) Color, Urine, POC Light Yellow Clarity, ur, POC Clear Clear Glucose, ur, POC Negative Negative MG/DL Bilirubin, ur, POC Negative Negative, Small, Moderate, Large Ketones, ur, POC Negative Negative Specific [place], POC 1.020 1.003 - 1.030 Blood, ur, POC Moderate(A) Negative pH, ur, POC 6.0 5.0 - 8.0 Protein, ur, POC 30.(A) Negative Urobilinogen, urine, POC 0.2 0.2 - 1.0 mg/dL Nitrite, ur, POC Negative Negative Leukocytes, ur, POC Small(A) Negative Lot Number [id number] Urine 09/13/2024 7:17 PM CDT Yam[facility] DAILY POINT OF CARE TEST ORDER YURI Final Result * POC Influenza A/B, COVID-19 antigen (08/28/2024 8:27 AM CDT) Influenza A Ag, POC Negative Negative [facility] Influenza B Ag, POC Negative Negative [facility] COVID-19 Ag POC Presumptive Negative Presumptive Negative, Invalid [facility] Nasal 08/28/2024 8:27 AM CDT Rocío Turcios NP POINT OF CARE TEST ORDERABLES F inal Result [facility] [address] [place] [address], [facility] from Last 3 Months Insurance [facility] Care Teams Asp Net Software Developer Relationship Specialty Start Date End Date Unknown, Notinfile PCP - General 02/15/24
--- OUTSIDE RECORDS SUMMARY | 2024-11-02 16:46 | XMS_ITS | Encounter Summary ---
Author Organization [facility] Address [address] [place] [address] Care Team Providers Care Cylinder Machine Operator Pulp Drier Name Role Phone Unknown, Travis Primary Care Provider Unavail able Encounter Details Date Type Department Care Team (Late st Contact Info) Description 09/15/2024 Results Follow-Up [facility] Care at [address] [phone] Noelle Hernandez, GARDEN MACHINERY MECHANIC [address] [place] [address] [address] [place] [address] Urine culture Urine, clean voided Social History Tobacco Use Types Packs/Day Years Used Date Smoking Tobacco: Never Smokeless Tobacco: Never Comments No Sex and Gender Information Value Date Recorded Sex Assigned at Not on file Legal Sex Female 11:53 PM CDT Gender Identity Not on file Sexual Orientation Not on file documented as of this encounter Plan of Treatment Not on file documented as of this encounter Visit Diagnoses Not on filedocumented in this encounter Care Teams Cylinder Machine Operator Pulp Drier Relationship Specialty Start Date End Date Unknown, Travis PCP - General 02/15/24 documented as of this encounter
--- OUTSIDE RECORDS SUMMARY | 2024-11-02 16:46 | XMS_ITS | Clinical Summary ---
Author Organization [employer] Address [address] Melendezn: Epic Prelude ADT JAYDON GRANADO [address] Care Team Providers Care Application Packager Name Role Phone Unavailable Primary Care Provider Unavailabl e Social History Tobacco Use Types Packs/Day Years Used Date Smoking Tobacco: Never Assessed Comments Unknown Sex and Gender Information Value Date Recorded Sex Assigned at Not on file Legal Sex Female 9:46 AM CDT Gender Identity Not on file Sexual Orientation Not on file Plan of Treatment Health Maintenance Due Date Last Done Comments DTAP/TDAP/TD VACCINES (1 - Tdap) 1993 HEPATITIS B VACCINES (1 of 3 - 19+ 3-dose series) 1993 HPV/Cotest (21-29) 1995 HPV/Cotest (30-65) 2004 BREAST CANCER SCREENING 09/14/2017 09/14/2016, 09/14 COLORECTAL SCREENING 2019 Colorectal Cancer Screening 2019 FIT-DNA Q 3 years 2019 FIT/FOBT Q 1 year 2019 Flex Sig/CT Colonography Q 5 years 2019 CERVICAL CANCER SCREENING 02/02/2023 PAP SMEAR 02/02/2023 02/03/2020, 01/16, 11/11/2019, Additional history exists INFLUENZA VACCINE (#1) 2024 ZOSTER VACCINE (1 of 2) 2024
--- NOTE | 2024-11-02 16:49 | ECG_ITS ---
Test Date: 2024-11-02 17:00:06 Measurements Intervals Ora Rate: 82 P: 14 ID: 126 QRS: 7 QRSD: 84 T: 31 QT: 370 QTc: 433 Interpretive Statements SINUS RHYTHM MODERATE VOLTAGE CRITERIA FOR LVH, CONSIDER NORMAL VARIANT [MEETS CRITERIA IN ONE OF: R(aVL), S(V1), R(V5), R(V5/V6)+S(V1)] No previous ECG available for comparison Electronically Signed On 11-03-2024 10:42:33 CDT by Zhang Terrell M.D.
[2024-11-02 16:52] VITALS: BP 159/73; PULSE 82; RESP 16; TEMP 36.3; O2SAT 95
--- NOTE | 2024-11-02 18:16 | ED_ITS ---
HPI - Arrhythmia/Palpitations General Chief Complaint: Arrhythmia/Palpitations Stated Complaint: heart palpitations since yest. Time Seen by Provider: 11/02/24 19:55 Focused HPI: 49-year-old female with reported hx of anxiety presents emergency department for palpitations. Patient states she has had intermittent palpitations for several years, worsening over the past couple of days. Patient states over the past few days her palpitations have occurred more frequently lasted longer than normal. She states she started having palpitations last night woke up with them again this morning. She states she was having some chest pain earlier this afternoon but that has since resolved. she also states her palpitations resolved when she arrived to the ED. she reports associated intermittent numbness and tingling to her hands. Denies hemoptysis, cough. States with the palpitations occur she feels short of breath. She states she is in between primary care providers currently and has not had blood work done in several years. GENERAL: Well-appearing, well-nourished, and in no acute distress. HEAD: Normocephalic, atraumatic. CHEST: Clear to auscultation. No respiratory distress. HEART: Regular rate and rhythm. NEURO: Alert and oriented x3. Patient screened in triage and initial orders placed. Additional care and disposition to be based upon diagnostic testing and treatment. History of Present Illness HPI narrative: Agree with the above triage note. Related Data Home Medications Medication Instructions Recorded Confirmed Last Taken Type nifedipine 30 mg tablet,extended 30 mg PO BID 05/16/20 06/16/20 06/15/20 09:00 History release 24 hr norethindrone 1 mg-ethinyl 1 tablet PO DAILY 06/16/20 06/16/20 Unknown History estradiol 20 mcg (24)-iron 75 mg (4) tablet () Allergies Allergy/AdvReac Type Severity Reaction Status Date / Time No Known Allergies Allergy Verified 11/02/24 16:45 Review of Systems 2 Review of Systems: All systems reviewed & are unremarkable except as noted in HPI and below PMFSH Past Medical History Medical History Anxiety Left renal stone Left ureteral calculus hypertension Migraines Surgical History Surgical History Hx laparoscopic cholecystectomy History of lymph node excision Left inguinal lymph node excision as a child, benign finding. History of wisdom tooth extraction History of section (~04/16/20) History of hysteroscopy Family History Family History Father Diabetes mellitus Family history of renal failure Mother Diabetes mellitus Family history of migraine headaches Family history of Parkinson's disease Family history of Alzheimer's disease Family history of malignant neoplasm of cervix Other Family history of lung cancer Family history of malignant neoplasm of brain Social History Social History Social History: The patient lives in [place] with her significant other and children. 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 She denies alcohol, tobacco, and illicit substance use. She designates Artem Larkin, her significant other, as her surrogate decision maker and she wishes to be a full code. 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 HEAD: Normocephalic, atraumatic. EYES: EOMI. ENT: Nares clear, no rhinorrhea or epistaxis. Mucous membranes moist. NECK: Supple. CHEST: Clear to auscultation. No respiratory distress. HEART: Regular rate and rhythm. No murmur heard. Normal peripheral pulses. ABDOMEN: Soft, nontender, nondistended, normal active bowel sounds. EXTREMITIES: Normal range of motion. No edema. Negative Homans bilaterally. SKIN: Warm, dry, no rash. NEURO: No focal deficits. Alert and oriented x3 Course Vital Signs Vital signs: Vital Signs Temperature 97.4 F L 11/02/24 16:52 Pulse Rate 82 11/02/24 16:52 Respiratory Rate 16 11/02/24 16:52 Blood Pressure 159/73 H 11/02/24 16:52 Pulse Oximetry 95 11/02/24 16:52 Temperature 97.4 F L 11/02/24 16:52 Pulse Rate 72 11/02/24 20:32 Respiratory Rate 19 11/02/24 19:55 Blood Pressure 174/88 H 11/02/24 19:55 Pulse Oximetry 99 11/02/24 19:55 MDM - Arrhythmia/Palpitations MDM Narrative Medical decision making narrative: 49-year-old female presents to the emergency department for intermittent palpitations for several years, worsening over the past couple of days. Patient denies palpitations upon arrival to the ED. vitals with elevated blood pressure otherwise unremarkable. Patient is afebrile and nontoxic appearing. Exam notable for the above. CBC without leukocytosis. Hemoglobin elevated at 15.4, likely hemoconcentration due to dehydration. Fluids provided. Chemistries with chronic transaminitis, unchanged from baseline. No right upper quadrant or epigastric abdominal pain. Lipase within normal limits. No electrolyte derangements. TSH within normal limits. EKG shows normal sinus rhythm with a rate of 82 ppm, normal IN interval, normal QRS duration, normal QTC, no ischemic changes. Troponin undetectable x2. D-dimer within normal limits. Wells score is low risk. Patient updated on results. On re-evaluation she is resting comfortably in exam bed, reports improvement. No arrhythmias noted to refinery operator reforming unit. She is given follow-up for Cardiology and PCP discussed need for possible outpatient Holter monitor. Advised to refrain from caffeine and to push fluids at home. Discussed strict ED return precautions. She is agreeable with the plan verbalized understanding. Discharged in stable condition. Lab Data 11/02/24 19:47 11/02/24 19:47 Labs: Lab Results 11/02/24 11/02/24 11/02/24 Range/Units 19:46 19:47 19:55 WBC 9.0 (4.5-10.0) K/mm3 RBC 5.26 (4.2-5.4) M/mm3 Hgb 15.4 H (12.0-15.0) g/dL Hct 46.5 (37.0-47.0) % MCV 88.4 (80-100) fl MCH 29.3 (26-34) pg MCHC 33.1 (32-36) g/dl RDW 12.3 (11.5-14.5) % Plt Count 301 (150-375) k/mm3 MPV 8.7 (7.4-10.4) fl Immature Gran % (Auto) 0.3 (0-0.5) % Neut % (Auto) 65.4 (45.5-73.1) % Lymph % (Auto) 27.1 (18.3-44.2) % [place] % (Auto) 5.5 (2.6-8.5) % Eos % (Auto) 1.4 (0-4.4) % Baso % (Auto) 0.3 (0.2-1.2) % Lymph # (Auto) 2.44 (0.9-3.2) K/mm3 [place] # (Auto) 0.5 (0.1-0.6) K/mm3 Eos # (Auto) 0.1 (0-0.3) K/mm3 Baso # (Auto) 0.0 (0.0-0.1) K/mm3 Abs Immat Gran (auto) 0.03 (0.00-0.031) K/mm3 Absolute Neuts (auto) 5.9 (1.3-6.7) K/mm3 Absolute Nucleated RBC 0.000 (0.0-0.012) K/mm3 Nucleated RBC % 0.0 (0.0-0.2) % D-Dimer 0.48 (<0.48) ug/mL Sodium 141 (137-145) mmol/L Potassium 4.0 (3.4-5.0) mmol/L Chloride 107 (98-107) mmol/L Carbon Dioxide 23 (22-30) mmol/L Anion Gap 11 (4-12) mmol/L BUN 16 (7-17) mg/dL Creatinine 0.68 L (0.7-1.0) mg/dL Estim Creat Clear Calc Not Reportable Estimated GFR > 60 (59 - ) Glucose 99 (65-110) mg/dL Calcium 9.5 (8.4-10.2) mg/dL Magnesium 2.5 H (1.6-2.3) mg/dL Total Bilirubin 0.8 (0.2-1.3) mg/dL AST 76 H (14-36) U/L ALT 109 H (6-35) U/L Alkaline Phosphatase 105 (38-126) U/L Troponin I < 0.012 (0.000-0.034) ng/mL Total Protein 9.0 H (6.3-8.2) g/dL Albumin 4.8 (3.5-5.1) g/dL Lipase 78 (23-300) U/L TSH (Reflex) 1.260 (0.465-4.68) uIU/mL Urine Color Yellow (Yellow) Urine Appearance Clear (Clear) Urine pH 5.5 (5.0-9.0) Ur Specific [place] 1.021 (1.001-1.035) Urine Protein Trace (Negative) mg/dL Urine Glucose (UA) Negative (Negative) mg/dL Urine Ketones Negative (Negative) mg/dL Ur Blood (Man) Negative (Negative) Urine Nitrate Negative (Negative) Urine Bilirubin Negative (Negative) Urine Urobilinogen 0.2 (<2.0) mg/dL Leukocyte Esterase Rfl Trace H (Negative) EVELIN/UL Urine RBC 0-2 (0-2) /hpf Urine WBC 6-10 H (0-3) /hpf Ur Squamous Epith Cells Moderate (Few) /hpf Urine Bacteria 1+ H /hpf Urine Casts 0-2 POC Urine HCG, Qual (Negative) 11/02/24 11/02/24 Range/Units 20:10 20:28 WBC (4.5-10.0) K/mm3 RBC (4.2-5.4) M/mm3 Hgb (12.0-15.0) g/dL Hct (37.0-47.0) % MCV (80-100) fl MCH (26-34) pg MCHC (32-36) g/dl RDW (11.5-14.5) % Plt Count (150-375) k/mm3 MPV (7.4-10.4) fl Immature Gran % (Auto) (0-0.5) % Neut % (Auto) (45.5-73.1) % Lymph % (Auto) (18.3-44.2) % [place] % (Auto) (2.6-8.5) % Eos % (Auto) (0-4.4) % Baso % (Auto) (0.2-1.2) % Lymph # (Auto) (0.9-3.2) K/mm3 [place] # (Auto) (0.1-0.6) K/mm3 Eos # (Auto) (0-0.3) K/mm3 Baso # (Auto) (0.0-0.1) K/mm3 Abs Immat Gran (auto) (0.00-0.031) K/mm3 Absolute Neuts (auto) (1.3-6.7) K/mm3 Absolute Nucleated RBC (0.0-0.012) K/mm3 Nucleated RBC % (0.0-0.2) % D-Dimer (<0.48) ug/mL Sodium (137-145) mmol/L Potassium (3.4-5.0) mmol/L Chloride (98-107) mmol/L Carbon Dioxide (22-30) mmol/L Anion Gap (4-12) mmol/L BUN (7-17) mg/dL Creatinine (0.7-1.0) mg/dL Estim Creat Clear Calc Estimated GFR (59 - ) Glucose (65-110) mg/dL Calcium (8.4-10.2) mg/dL Magnesium (1.6-2.3) mg/dL Total Bilirubin (0.2-1.3) mg/dL AST (14-36) U/L ALT (6-35) U/L Alkaline Phosphatase (38-126) U/L Troponin I < 0.012 (0.000-0.034) ng/mL Total Protein (6.3-8.2) g/dL Albumin (3.5-5.1) g/dL Lipase (23-300) U/L TSH (Reflex) (0.465-4.68) uIU/mL Urine Color (Yellow) Urine Appearance (Clear) Urine pH (5.0-9.0) Ur Specific [place] (1.001-1.035) Urine Protein (Negative) mg/dL Urine Glucose (UA) (Negative) mg/dL Urine Ketones (Negative) mg/dL Ur Blood (Man) (Negative) Urine Nitrate (Negative) Urine Bilirubin (Negative) Urine Urobilinogen (<2.0) mg/dL Leukocyte Esterase Rfl (Negative) EVELIN/UL Urine RBC (0-2) /hpf Urine WBC (0-3) /hpf Ur Squamous Epith Cells (Few) /hpf Urine Bacteria /hpf Urine Casts POC Urine HCG, Qual Negative (Negative) Discharge Plan Discharge Clinical Impression: Heart palpitations Patient Disposition: Home Condition: Stable Instructions: Antibiotic Form, Heart Palpitations (DC) Additional Instructions: You were evaluated in the emergency department for palpitations. Your workup here is reassuring. Incidentally were found have elevated liver enzymes, please follow-up with your primary care provider regarding this. Follow-up with the primary care provider and litigation counsel I have referred you to for outpatient Holter monitor. Return to the emergency department if you develop any new or worsening symptoms. Patient Language: Greek Prescriptions: No Action nifedipine 30 mg tablet extended release 24hr 30 mg PO BID norethindrone-e.estradiol-iron [Junel Fe 24] 1 mg-20 mcg (24)/75 mg (4) Tablet 1 tablet PO DAILY nitrofurantoin monohyd/m-cryst [Macrobid] 100 mg capsule 100 mg PO Q12H 5 Days Qty: 10 0RF Rx Instructions: must administer with a meal/food. Start morning of 06/17. End evening of 06/21. Follow-up/Referrals: Tez Umanzor MD [Physician] - PHYSICIAN,YARD TRUCK DRIVER [Primary Care Provider] - Fredy Mendieta MD [Physician] - Quality HEART score for chest pain patients History: slightly suspicious ECG: normal Age: > 45 and < 65 years Risk factors: 1 or 2 risk factors Troponin: < or = to 1x normal limit Heart score: 2
--- NOTE | 2024-11-02 19:44 | ECG_ITS ---
Test Date: 2024-11-02 19:47:25 Measurements Intervals [place] Rate: 72 P: 15 MI: 129 QRS: 14 QRSD: 83 T: 31 QT: 372 QTc: 408 Interpretive Statements SINUS RHYTHM MINIMAL VOLTAGE CRITERIA FOR LVH, CONSIDER NORMAL VARIANT [MEETS CRITERIA IN ONE OF: R(aVL), S(V1), R(V5), R(V5/V6)+S(V1)] Compared to ECG 11/02/2024 17:00:06 No significant changes Electronically Signed On 11-03-2024 10:43:33 CDT by Zhang Terrell M.D.
[2024-11-02 19:55] VITALS: BP 174/88; PULSE 77; RESP 19; O2SAT 99
[2024-11-02 19:55] LABS: Basophils Percent Auto 0.3 % (0.2-1.2); Eosinophils Absolute Auto 0.1 K/mm3 (0-0.3); Eosinophils Percent Auto 1.4 % (0-4.4); Hematocrit 46.5 % (37.0-47.0); Hemoglobin 15.4 g/dL (12.0-15.0); Immature Granulocyte Absolute 0.03 K/mm3 (0.00-0.031); Immature Granulocyte Percent A 0.3 % (0-0.5); Lymphocytes Absolute Auto 2.44 K/mm3 (0.9-3.2); Lymphocytes Percent Auto 27.1 % (18.3-44.2); Mean Corpuscular HGB Conc 33.1 g/dl (32-36); Mean Corpuscular Hemoglobin 29.3 pg (26-34); Mean Corpuscular Volume 88.4 fl (80-100); Mean Platelet Volume 8.7 fl (7.4-10.4); Monocytes Absolute Auto 0.5 K/mm3 (0.1-0.6); Monocytes Percent Auto 5.5 % (2.6-8.5); Neutrophils Absolute Auto 5.9 K/mm3 (1.3-6.7); Neutrophils Percent Auto 65.4 % (45.5-73.1); Platelet Count Result 301 k/mm3 (150-375); Red Blood Count 5.26 M/mm3 (4.2-5.4); Red Cell Distribution Width 12.3 % (11.5-14.5)
[2024-11-02 20:02] LABS: Alanine Aminotransferase 109 U/L (6-35); Albumin Level 4.8 g/dL (3.5-5.1); Alkaline Phosphatase 105 U/L (38-126); Anion Gap 11 mmol/L (4-12); Aspartate Amino Transferase 76 U/L (14-36); Bilirubin,Total 0.8 mg/dL (0.2-1.3); Blood Urea Nitrogen 16 mg/dL (7-17); Calcium 9.5 mg/dL (8.4-10.2); Carbon Dioxide 23 mmol/L (22-30); Chloride 107 mmol/L (98-107); Estimated Glomerular Filt Rate > 60; Glucose 99 mg/dL (65-110); Lipase 78 U/L (23-300); Magnesium 2.5 mg/dL (1.6-2.3); Sodium 141 mmol/L (137-145)
[2024-11-02 20:12] LABS: BEDSIDEPREGUCG Negative (Negative)
[2024-11-02 20:13] LABS: Troponin I < 0.012 ng/mL (0.000-0.034)
[2024-11-02 20:17] LABS: Add Urine Microscopic? YES; Appearance Urine Clear (Clear); Bacteria Urine 1+ /hpf; Bilirubin Urine Negative (Negative); Blood Urine Negative (Negative); Color Urine Yellow (Yellow); Glucose Urine UA Negative (Negative); Ketones Urine Negative (Negative); Leukocyte Esterase Ur Trace LEU/UL (Negative); Nitrate Urine Negative (Negative); Non Pathogenic Casts 0-2; Protein Urine Trace mg/dL (Negative); RBC Urine 0-2 /hpf (0-2); Specific Grav Ur 1.021 (1.001-1.035); Squamous Epithelial Cell Urine Moderate /hpf (Few); Urobilinogen Urine 0.2 mg/dL (<2.0); pH Urine 5.5 (5.0-9.0)
[2024-11-02 20:22] LABS: D Dimer 0.48 ug/mL (<0.48)
[2024-11-02] MEDS: SODIUM CHLORIDE 0.9% IV 1,000 ML 999 ML IV CONT (20:31)
[2024-11-02 20:32] VITALS: PULSE 72
--- OUTSIDE RECORDS SUMMARY | 2024-11-02 20:35 | XMS_ITS | Referral Summary ---
Author Organization [address] [address] Care Team Providers Care Roofing Technician Name Role Phone Unknown, Notinfile Primary Care Provider Unavail able Encounters Date Type Department Care Team Description 09/15/2024 Results Follow-Up [facility] Convenient Care at [address] [phone] Noelle Hernandez NP Urine culture Urine, clean voided 09/13/2024 7:21 PM CDT - 09/13/2024 11:59 PM CDT Hospital Encounter [address] [address] Cystitis with hematuria Discharge Disposition: Discharge to home or self care 09/13/2024 6:00 PM CDT Office Visit [facility] Care at [address] [phone] Yamile Hamilton PA Cystitis with hematuria (Primary Dx) 08/28/2024 8:30 AM CDT Office Visit [facility] Care at [address] [phone] Rocío Turcios NP Acute maxillary [...] current clinical standards) Comment:Testing performed by : [facility], [address] [place]., [address] Organism (CLINICALLY INSIGNIFICANT [facility] Urine, clean voided 09/13/2024 7:21 PM CDT 09/14/2024 4:05 AM CDT Narrative ALEXANDREA - 09/15/2024 11:45 AM CDT Testing performed by [facility] Microbiology Laboratory ([phone]) Yamile DAILY LAB MICROBIOLOGY - GENER AL ORDERABLES Final Result ALEXANDREA [address] Department [place] [address] * (ABNORMAL) POCT urinalysis dipstick (09/13/2024 7:17 PM CDT) Pathologist [facility] Color, Urine, POC Light Yellow Clarity, ur, POC Clear Clear Glucose, ur, POC Negative Negative MG/DL Bilirubin, ur, POC Negative Negative, Small, Moderate, Large Ketones, ur, POC Negative Negative Specific [place], POC 1.020 1.003 - 1.030 Blood, ur, POC Moderate(A) Negative pH, ur, POC 6.0 5.0 - 8.0 Protein, ur, POC 30.(A) Negative Urobilinogen, urine, POC 0.2 0.2 - 1.0 mg/dL Nitrite, ur, POC Negative Negative Leukocytes, ur, POC Small(A) Negative Lot Number [id number] Urine 09/13/2024 7:17 PM CDT Yamile DAILY POINT OF CARE TEST ORDER YURI Final Result * POC Influenza A/B, COVID-19 antigen (08/28/2024 8:27 AM CDT) Influenza A Ag, POC Negative Negative [facility] Influenza B Ag, POC Negative Negative [facility] COVID-19 Ag POC Presumptive Negative Presumptive Negative, Invalid [facility] Nasal 08/28/2024 8:27 AM CDT Rocío Turcios NP POINT OF CARE TEST ORDERABLES F inal Result [facility] CC EDW [address] [place] [address], [facility] from Last 3 Months Insurance [facility] Care Teams Roofing Technician Relationship Specialty Start Date End Date Unknown, Notinfile PCP - General 02/15/24
--- OUTSIDE RECORDS SUMMARY | 2024-11-02 20:35 | XMS_ITS | Clinical Summary ---
Author Organization [facility] Address [address] [place] [address] Care Team Providers Care Telegrapher Agent Name Role Phone Mauricio Stone MD Primary Care Provider [phone] Source Comments [facility],non-owned Affiliates and Associated Physician Practices is amultiple site organization consisting of ambulatory clinics and hospital sitesin [place], [place], [place] and [place]. This disclosure is being madepursuant to the Care Everywhere program and may not contain all information available regarding this patient. Last updated 18[employer] Allergies No known active allergies Medications * [...] Jo was screened for depression using the [place] Depression Scale (EPDS) at her [facility] initial evaluation on 02/05/2020. Her initial [...] (02/05/2020): Ave Hicks RN will be Nas[facility]'s [facility] Printed Circuit Board Designer, call office [phone] High Risk NIPT -- trisomy 21 12/29/2019 AMA (advanced maternal age) multigravida 35+, first trimester 12/12/2019 Overview (12/12/2019): Pt declined NIPT at primary OB visit. Dating 12/02/19 19w2d= MATHIEU 11/8 A+ Neg, Imm, HIV-NR Resolved Problems Problem Noted Date Diagnosed Date Resolved Date abnormality in - Trisomy 21 01/21/2020 04/19/2020 Overview (04/15/2020): Images from the original note were not included. RETIREMENT PATIENT--PLEASE CALL [phone] (ex 2) IF TRIAGED OR ADMITTED Care Provider: Dr. Restrepo- OB; Referred by Dr. Rojas [facility] consultants involved: Darling- Nurse Coordinator; Dr. Marroquin- CT surgery; Dr. Reyes- Neonatology Diagnosis: Trisomy 21 per NIPT; declined amnio; Complete AV canal with primum ASD, inlet VSD. Normal biventricular systolic function, balanced ventricles. No AV valve regurgitation Planned surveillance: Initial RETIREMENT US/echo 02.04 Delivery [facility]: [facility] Delivery mode: 10.30 at 1330 C/S with [...] Trisomy 21. Per Dr. Reyes: echo at [facility]. Patient should be discussed with cardiology. If patient is stable after delivery, may be able to be discharged from [facility] with cardiology follow-up as an outpatient. However, if patient is hemodynamically unstable, or requires consultation from any other services postnatally, they will need to be transferred to [facility] for further care. Tag Clerk: Dr. Shana Romero [phone]; [phone](fax) Autopsy indicated: Genetics note: genetic diagnostic testing was not performed. Patient desires karyotype to be performed on cord blood at the time of delivery. Please draw at least 3cc cord blood in green top sodium heparin tube. If after office hours, on a weekend or a holiday, please hold in refrigerator in sendout laboratory and call the genetic counselor at [phone] to notify that specimen is ready for sendout. Order can be placed by genetic counselor in baby's chart at that time. Please request Genetics consult postnatally by calling the Genetics office at [phone] prior to ordering additional genetic studies. Destination Sign Repairer Concerns: Care plan based on evaluation and [...] Hx Hypercholesterolemia Neg Hx Hypertension Neg Hx TX<55(male) Neg Hx TX<65(female) Neg Hx Mental Health Neg Hx Migraine [...] on file Legal Sex Female 6:29 AM DIRECT MAIL MANAGER Gender Identity Not on file Sexual Orientation Not on file Last Filed Vital Signs Vital Sign Reading Time Taken Comments Blood Pressure 148/74 04/19/2020 12:45 PM DIRECT MAIL MANAGER Pulse 77 04/19/2020 12:45 PM DIRECT MAIL MANAGER Temperature 36.6 C (97.9 F) 04/19/2020 7:40 AM DIRECT MAIL MANAGER Respiratory Rate 18 04/19/2020 7:40 AM DIRECT MAIL MANAGER Oxygen Saturation 100% 04/19/2020 7:40 AM DIRECT MAIL MANAGER Inhaled Oxygen Concentration - - Weight 83.5 [...] 12:20 PM 04/19/2020 3:48 PM Care Teams Telegrapher Agent Relationship Specialty Start Date End Date Mauricio Stone MD [address] [place] [id number] PCP - General Family Medicine 02/14/16
--- OUTSIDE RECORDS SUMMARY | 2024-11-02 20:35 | XMS_ITS | Encounter Summary ---
Author Organization [facility] Address [address] [place] [id number] Care Team Providers Care Saloonkeeper Name Role Phone Unknown, Travis Primary Care Provider Unavail able Encounter Details Date Type Department Care Team (Late st Contact Info) Description 09/15/2024 Results Follow-Up [facility] Convenient Care at [address] [address] Noelle Hernandez, AUTOMOTIVE PARTS COUNTER ASSOCIATE [address] [place] [address] [address] [place] [address] Urine culture Urine, clean voided [...] on filedocumented in this encounter Care Teams Saloonkeeper Relationship Specialty Start Date End Date Unknown, Travis PCP - General 02/15/24 documented as of this encounter
--- OUTSIDE RECORDS SUMMARY | 2024-11-02 20:35 | XMS_ITS | Clinical Summary ---
Author Organization [employer] Address [address] [facility] [address] Melendezn: Epic Prelude ADT JAYDON GRANADO [address] Care Team Providers Care Rolling Machine Tender Name Role Phone Unavailable Primary Care Provider [...]
--- OUTSIDE RECORDS SUMMARY | 2024-11-02 20:35 | XMS_ITS | Clinical Summary ---
Author Organization [facility] [address] Address [address] [place] [id number] Care Team Providers Care Gas Substation Operator Name Role Phone Unknown, Notinfile Primary Care [...] Department Care Team Description 09/15/2024 Results Follow-Up [facility] Convenient Care at [address] [address] Noelle Hernandez, KASIE Urine culture Urine, clean voided 09/13/2024 7:21 PM CDT - 09/13/2024 11:59 PM CDT Hospital Encounter [address] [address] Cystitis with hematuria Discharge Disposition: Discharge to home or self care 09/13/2024 6:00 PM CDT Office Visit [facility] Con[facility]ient Care at [address] [phone] Yamile Hamilton PA Cystitis with hematuria (Primary Dx) 08/28/2024 8:30 AM CDT Office Visit [facility] Convenient Care at [address] [phone] Rocío Turcios NP Acute maxillary sinusitis, recurrence [...] current clinical standards) Comment:Testing performed by : , [address] [place]., [address] Organism (CLINICALLY INSIGNIFICANT GROWTH [facility] Urine, clean voided 09/13/2024 7:21 PM CDT 09/14/2024 4:05 AM CDT Narrative ALEXANDREA - 09/15/2024 11:45 AM CDT Testing performed by Microbiology Laboratory ([phone]) Yamile DAILY LAB MICROBIOLOGY - [facility] ORDERABLES Final Result ALEXANDREA [address] Department [place] [address] * (ABNORMAL) POCT urinalysis dipstick (09/13/2024 7:17 PM CDT) Color, Urine, POC Light Yellow Clarity, ur, POC Clear Clear Glucose, ur, POC Negative Negative MG/DL Bilirubin, ur, POC Negative Negative, Small, Moderate, Large Ketones, ur, POC Negative Negative Specific [place], POC 1.020 1.003 - 1.030 Blood, ur, POC Moderate(A) Negative pH, ur, POC 6.0 5.0 - 8.0 Protein, ur, POC 30.(A) Negative Urobilinogen, urine, POC 0.2 0.2 - 1.0 mg/dL Nitrite, ur, POC Negative Negative Leukocytes, ur, POC Small(A) Negative Lot Number [id number] Urine 09/13/2024 7:17 PM CDT Yamile DAILY [...] TEST ORDERABLES F inal Result [facility] [address] [place] [address], [facility] from Last 3 Months Insurance [facility] Care Teams Gas Substation Operator Relationship Specialty Start Date End Date Unknown, Notinfile PCP - General 02/15/24
[2024-11-02 20:57] LABS: Troponin I < 0.012 ng/mL (0.000-0.034)
[2024-11-02 21:30] VITALS: BP 167/78; PULSE 72; RESP 20; TEMP 36.2; O2SAT 100
== END 2024-11-02 21:30 | disposition home or self-care (01) ==
PROVIDERS: Student in an Organized Health Care Education/Training Program; Emergency Provider Physician Assistant
DX: R00.2 Palpitations (principal)
CPT/HCPCS: 36415; 71046; 80053; 81001; 81025; 83690; 83735; 84443; 84484; 85025; 85380; 93005; 96360; 99284; J7030